=== PATIENT | male | born 1960 | race Caucasian/White ===

== ENCOUNTER → 2017-03-30 | Outpatient (CLI) | payer OTHER ==
[~2017-03-30] MED LIST: ASPI325T4 PO; ATOR-26 PO; CIPR-255 PO; METO25TA3 PO; METR-163 PO; NTRGSL/4 UT; OXYC1TAB3 PO
[2017-03-30 18:47] LABS: CHOLESTEROL/HDL RATIO 4.1
== END | disposition home or self-care (01) ==
LOC: C.LAB 17:11
PROVIDERS: ATTEND Internal Medicine Cardiovascular Disease
DX: I25.10 Atherosclerotic heart disease of native coronary artery without angina pectoris (principal); E78.00 Pure hypercholesterolemia, unspecified

== ENCOUNTER 2017-04-18 14:33 | Emergency (ER) | payer OTHER ==
[~2017-04-18] VITALS: Ht 165.1 cm; Wt 100.0 kg
[~2017-04-18 14:33] MED LIST changes: -ASPI325T4 PO; -CIPR-255 PO; -METR-163 PO; -OXYC1TAB3 PO
[2017-04-18 14:35] VITALS: TEMP 36.8; Ht 165.1 cm; Wt 100.0 kg
[2017-04-18] MEDS ORDERED: KETOROLAC TROMETHAMINE 30 MG/ML VIAL IV STA (15:00)
[2017-04-18] MEDS ORDERED: SODIUM CHLORIDE 0.9% 1000ML 2,000 ML IV STA (15:00)
[2017-04-18] MEDS ORDERED: ONDANSETRON INJ 2 MG/ML 2 ML VIAL IV STA (15:00)
[2017-04-18 15:18] LABS: BASO % 0.3 %; BASO ABS # 0.04 K/uL (0-0.2); COMPLETE YES; EOS % 0.3 %; HEMATOCRIT 44.7 % (42-52); IG% 0.4 %; LYMPH % 7.3 %; LYMPH ABS # 1.13 K/uL (1.2-3.4); MEAN CELL VOLUME 89.6 fL (80-100); MEAN CORPUSCULAR HEMOGLOBIN 30.3 pg (25-34); MEAN CORPUSCULAR HGB CONC 33.8 g/dl (32-36); MEAN PLATELET VOLUME 9.6 fL (7.4-10.4); NEUT % 84.7 %; PLATELET COUNT 226 K/uL (130-400); RED BLOOD COUNT 4.99 M/uL (4.7-6.1); WHITE BLOOD COUNT 15.47 K/uL (4.8-10.8)
[2017-04-18 15:20] LABS: URINE APPEARANCE CLEAR (CLEAR); URINE COLOR DK YELLOW; URINE EPITHELIAL CELL AUTO 20-30 /lpf (0-5); URINE NITRITE NEG (NEG); URINE PH 5.5 (4.5-7.5); URINE SPECIFIC GRAVITY 1.028 (1.000-1.030); UROBILINOGEN NEG (NEG); ZZUR CULT IF INDIC CLEAN CATCH NO
[2017-04-18 15:21] LABS: MANUAL MICROSCOPIC REQUIRED? NO; REVIEW REQ? NO; URINE BILIRUBIN NEG (NEG)
[2017-04-18 15:36] LABS: CALCIUM 8.8 mg/dl (8.5-10.1); CREATININE 1.2 mg/dl (0.60-1.40); POTASSIUM 3.4 mmol/L (3.5-5.1)
[2017-04-18] MEDS ORDERED: ASPI325T4 PO (15:52)
[2017-04-18] MEDS ORDERED: OPTIRAY 320 IV PRN (16:45)
--- NOTE | 2017-04-18 16:53 | DIAGNOSTIC IMAGING REPORT ---
ADDENDUM The conclusion should indicate that there is no evidence for focal perforation or extracolonic air. Electronically signed by: Jorge Curiel M.D. 04/18/2017 5:17 PM Dictated Date/Time: 04/18/2017 5:16 PM ORIGINAL REPORT ABDOMEN AND PELVIS CT WITH IV CONTRAST CT DOSE: 1177.86 mGy.cm HISTORY: Pelvic pain. lower umbilical abd pain TECHNIQUE: Multiaxial CT images of the abdomen and pelvis were performed following the use of intravenous contrast. COMPARISON STUDY: 04/08/2014 FINDINGS: Linear scarlike density right lung base. Minimal dependent basilar atelectasis. Fatty infiltration of liver. Elbow is negative for distention. Spleen is uniform. The adrenal glands are unremarkable. Extrarenal pelves involving the kidneys bilaterally. No evidence for hydronephrosis. Considerable wall edematous change of the proximal to mid sigmoid colon. Transaxial image 76 suggests a focal air bubble extrinsic to the lumen this most likely relates to a diverticulum. Pericolonic infiltrative changes significant. There is slight infiltrative change extending to the left lateral pelvic sidewall.. Suggest acute diverticulitis. Bladder is midline. There is slight bladder wall thickening. There is small amount of fluid within the lower right paracolic gutter most likely reactive. IMPRESSION: 1. Acute proximal to mid sigmoid diverticulitis. 2. Considerable air pericolonic wall infiltrative change. 3. No evidence for abscess collection or obstruction. Electronically signed by: Jorge Curiel M.D. 04/18/2017 4:52 PM Dictated Date/Time: 04/18/2017 4:49 PM
[2017-04-18] MEDS ORDERED: METRONIDAZOLE 500MG / 100ML NSS IV STA (17:09)
[2017-04-18] MEDS ORDERED: CIPROFLOXACIN 500 MG TAB PO STA (17:11)
[2017-04-18] MEDS ORDERED: OXYC1TAB3 PO (17:33)
[2017-04-18] MEDS ORDERED: METR-163 PO (17:33)
[2017-04-18] MEDS ORDERED: CIPR-255 PO (17:33)
[2017-04-18 18:34] VITALS: BP 149/77; PULSE 84; O2SAT 96
--- NOTE | 2017-04-18 21:42 | EMERGENCY ROOM VISIT NOTE ---
History Report prepared by Manule: Andi Villasenor Under the Supervision of: Dr. Evan Gaston D.O. First contact with patient: 14:42 Chief Complaint: ABDOMINAL PAIN Stated Complaint: ABDOMINAL PAIN Nursing Triage Summary: Pt low mid abdominal pain x 3 days. Pt denies n/v/d Pt states he has been voiding more often because it helps decrese the pain. No BM x 3 days. Pt states he has not taken anything for constipation because "I'm afraid to. 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 His pain is improved while laying down and urinating. He notes that he has a history of a heart attack. The patient states that he has not been eating or drinking much recently. His last normal bowel movement was two days ago. He has no history of similar symptoms. The patient has no history of abdominal surgery. Pt denies headache, change in vision, fevers, chest pain, shortness of breath, testicular pain, nausea, vomiting, diarrhea.. 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 Source of History: patient Onset: three days ago Position: abdomen (lower) Timing: worsening Modifying Factors (Relieving): urination, other (laying down) Associated Symptoms: No SOB, No chest pain, No chills, No diarrhea, No fevers, No nausea, No urinary symptoms, No vomiting Note: The patient denies any testicular pain. Review of Systems See HPI for pertinent positives & negatives. A total of 10 systems reviewed and were otherwise negative. Past Medical & Surgical Medical Problems: (1) Coronary artery disease (2) Kidney stones Family History No pertinent family history stated. Social History Smoking Status: Former Smoker Alcohol Use: none Marital Status: Occupation Status: employed Current/Historical Medications Scheduled Aspirin (Aspirin), 325 MG PO DAILY Atorvastatin (Lipitor), 80 MG PO HS Ciprofloxacin Hcl (Cipro), 500 MG PO BID Metoprolol Succ (Toprol Xl) (Toprol-Xl), 25 MG PO BID Metronidazole (Flagyl), 500 MG PO TID Nitroglycerin (Nitrostat), 0.4 MG UT PRN Scheduled PRN Oxycodone Ir (Roxicodone Ir), 1-2 TAB PO Q4H PRN for Pain Allergies Coded Allergies: No Known Allergies (Unverified , 05/25/14) Physical Exam Vital Signs Date Time Temp Pulse Resp B/P Pulse Ox O2 Delivery O2 Flow Rate FiO2 04/18/17 18:34 84 18 149/77 96 Room Air 04/18/17 16:34 97 16 141/76 97 Room Air 04/18/17 14:35 36.8 120 16 163/92 96 Room Air Physical Exam GENERAL: Laying in bed, alert, well appearing, well nourished, no distress, non- toxic EYE EXAM: normal conjunctiva OROPHARYNX: no exudate, no erythema, lips, buccal mucosa, and tongue normal and mucous membranes are moist NECK: supple, no nuchal rigidity, no adenopathy, non-tender LUNGS: Clear to auscultation. Normal chest wall mechanics HEART: Tachycardic. No murmurs, S1 normal and S2 normal ABDOMEN: abdomen soft, normo-active bowel sounds, no masses, no rebound or guarding. Tenderness to palpation in the infraumbilical region. BACK: Back is symmetrical on inspection and there is no deformity, no midline tenderness, no CVA tenderness. SKIN: no rashes and no bruising UPPER EXTREMITIES: upper extremities are grossly normal. LOWER EXTREMITIES: No pitting edema. NEURO EXAM: Normal sensorium, cranial nerves II-XII grossly intact, normal speech, no gross weakness of arms, no gross weakness of legs. Medical Decision & Procedures ER Provider Diagnostic Interpretation: Radiology results as stated below per my review and the radiologist's interpretation: ABDOMEN AND PELVIS CT WITH IV CONTRAST FINDINGS: Linear scarlike density right lung base. Minimal dependent basilar atelectasis. Fatty infiltration of liver. Elbow is negative for distention. Spleen is uniform. The adrenal glands are unremarkable. Extrarenal pelves involving the kidneys bilaterally. No evidence for hydronephrosis. Considerable wall edematous change of the proximal to mid sigmoid colon. Transaxial image 76 suggests a focal air bubble extrinsic to the lumen this most likely relates to a diverticulum. Pericolonic infiltrative changes significant. There is slight infiltrative change extending to the left lateral pelvic sidewall.. Suggest acute diverticulitis. Bladder is midline. There is slight bladder wall thickening. There is small amount of fluid within the lower right paracolic gutter most likely reactive. IMPRESSION: 1. Acute proximal to mid sigmoid diverticulitis. 2. Considerable air pericolonic wall infiltrative change. 3. No evidence for abscess collection or obstruction. Electronically signed by: Jorge Curiel M.D. Laboratory Results 04/18/17 15:00 Red Blood Count 4.99, Mean Corpuscular Volume 89.6, Mean Corpuscular Hemoglobin 30.3, Mean Corpuscular Hemoglobin Concent 33.8, Mean Platelet Volume 9.6, Neutrophils (%) (Auto) 84.7, Lymphocytes (%) (Auto) 7.3, Monocytes (%) (Auto) 7.0, Eosinophils (%) (Auto) 0.3, Basophils (%) (Auto) 0.3, Neutrophils # (Auto) 13.10, Lymphocytes # (Auto) 1.13, Monocytes # (Auto) 1.09, Eosinophils # (Auto) 0.05, Basophils # (Auto) 0.04 04/18/17 15:00 Test 04/18/17 15:00 04/18/17 15:19 White Blood Count 15.47 K/uL (4.8-10.8) Red Blood Count 4.99 M/uL (4.7-6.1) Hemoglobin 15.1 g/dL (14.0-18.0) Hematocrit 44.7 % (42-52) Mean Corpuscular Volume 89.6 fL (80-100) Mean Corpuscular Hemoglobin 30.3 pg (25-34) Mean Corpuscular Hemoglobin Concent 33.8 g/dl (32-36) Platelet Count 226 K/uL (130-400) Mean Platelet Volume 9.6 fL (7.4-10.4) Neutrophils (%) (Auto) 84.7 % Lymphocytes (%) (Auto) 7.3 % Monocytes (%) (Auto) 7.0 % Eosinophils (%) (Auto) 0.3 % Basophils (%) (Auto) 0.3 % Neutrophils # (Auto) 13.10 K/uL (1.4-6.5) Lymphocytes # (Auto) 1.13 K/uL (1.2-3.4) Monocytes # (Auto) 1.09 K/uL (0.11-0.59) Eosinophils # (Auto) 0.05 K/uL (0-0.5) Basophils # (Auto) 0.04 K/uL (0-0.2) RDW Standard Deviation 43.9 fL (36.4-46.3) RDW Coefficient of Variation 13.4 % (11.5-14.5) Immature Granulocyte % (Auto) 0.4 % Immature Granulocyte # (Auto) 0.06 K/uL (0.00-0.02) Urine Color DK YELLOW Urine Appearance CLEAR (CLEAR) Urine pH 5.5 (4.5-7.5) Urine Specific [place] 1.028 (1.000-1.030) Urine Protein 1+ (NEG) Urine Glucose (UA) NEG (NEG) Urine Ketones 4+ (NEG) Urine Occult Blood 1+ (NEG) Urine Nitrite NEG (NEG) Urine Bilirubin NEG (NEG) Urine Urobilinogen NEG (NEG) Urine Leukocyte Esterase NEG (NEG) Urine WBC (Auto) 1-5 /hpf (0-5) Urine RBC (Auto) 0-4 /hpf (0-4) Urine Hyaline Casts (Auto) 5-10 /lpf (0-5) Urine Epithelial Cells (Auto) 20-30 /lpf (0-5) Urine Bacteria (Auto) NEG (NEG) Anion Gap 8.0 mmol/L (3-11) Est Creatinine Clear Calc Drug Dose 73.0 ml/min Estimated GFR () 76.8 Estimated GFR (Non- 66.3 BUN/Creatinine Ratio 9.0 (10-20) Calcium Level 8.8 mg/dl (8.5-10.1) Total Bilirubin 1.6 mg/dl (0.2-1) Direct Bilirubin 0.3 mg/dl (0-0.2) Aspartate Amino Transf (AST/SGOT) 16 U/L (15-37) Alanine Aminotransferase (ALT/SGPT) 30 U/L (12-78) Alkaline Phosphatase 111 U/L (45-117) Total Protein 7.7 gm/dl (6.4-8.2) Albumin 3.9 gm/dl (3.4-5.0) Lipase 138 U/L (73-393) Bedside Lactic Acid Venous 1.52 mmol/L (0.90-1.70) Laboratory results per my review. Medications Administered Medications (Trade) Dose Ordered Sig/René Route Start Time Stop Time Status Last Admin Dose Admin Ketorolac Tromethamine 30 mg 30 mg NOW STAT IV 5/20/17 15:00 04/18/17 15:03 DC 04/18/17 15:15 30 MG Sodium Chloride (Nss 1000ml) 2,000 ml @ 999 mls/hr Q2H1M STAT IV 04/18/17 15:00 04/18/17 17:00 DC 04/18/17 15:00 999 MLS/HR Ondansetron HCl (Zofran Inj) 4 mg NOW STAT IV 04/18/17 15:00 04/18/17 15:03 DC 04/18/17 15:14 4 MG Metronidazole (Flagyl / Nss) 500 mg NOW STAT IV 04/18/17 17:09 04/18/17 17:10 DC 04/18/17 17:21 500 MG Ciprofloxacin (Cipro Tab) 500 mg NOW STAT PO 04/18/17 17:11 04/18/17 17:12 DC 04/18/17 17:20 500 MG ED Course ED COURSE: Vital signs were reviewed and showed tachycardia The patients medical record was reviewed The above diagnostic studies were performed and reviewed. ED treatments and interventions as stated above. 1445: The patient was evaluated in room A2. A complete history and physical examination was performed. 1449: Bedside ultrasound showed an empty bladder. 1500: Ordered Zofran Inj 4 mg IV, Sodium Chloride 2000 ml @ 999 mls/hr IV, Toradol Inj 30 mg IV. 1520: I reassessed the patient. He is feeling better. I updated him on his laboratory studies. 1709: Ordered Flagyl / NSS 500 mg IV. 1711: Ordered Cipro Tab 500 mg PO. 1730: Upon reevaluation, the patient is resting comfortably. I discussed my findings with the patient and he understands and agrees with the treatment plan. Based on the patients age, coexisting illnesses, exam and lab findings the decision to treat as an outpatient was made. The patient remained stable while under my care. The patient appeared well at the time of discharge. Medical Decision Differential diagnoses includes but is not limited to gastritis, peptic ulcer disease, GERD, gallbladder disease, pancreatitis, small bowel obstruction, acute coronary syndrome, pericarditis, ischemic bowel, irritable bowel disease, irritable bowel syndrome, appendicitis, diverticulitis, malignancy, hernia, urinary tract infection, torsion, /ectopic , perforation, trauma, infectious. Patient is a 57-year-old male who presents the ER for a super umbilical abdominal pain which is present and worse with movement or bumps. Improves with urination. Has been present for the past 3 days. No fevers. He is eating and drinking. Labs show a leukocytosis of 15,000. CT of his abdomen and pelvis shows acute sigmoid diverticulitis without perforation or abscess. I updated him in regards these findings. He declined pain medications other than Toradol. Patient was given a bolus normal saline, Flagyl, cipro, and Toradol. Following this he was discharged with Cipro and Flagyl and instructed to follow-up with his primary care doctor to have an abdominal recheck within 48 hours. Discussed with Pt concerning signs and symptoms to watch out for. Pt was instructed to follow up with their PCP and discussed with the patient their option to return to the ED at anytime for persistent or worsening symptoms. The appropriate anticipatory guidance and out-patient management, including indications for return to the emergency department, were explained at length to the patient and understood. Consults Time Called: 1704 Consulting Physician: Dr. Curiel -Radiology Returned Call: 1705 Discussed the patient's case with Dr. Curiel. He does not feel that the patient has a perforation or abscess. Impression Primary Impression: Diverticulitis Scribe Attestation The scribe's documentation has been prepared under my direction and personally reviewed by me in its entirety. I confirm that the note above accurately reflects all work, treatment, procedures, and medical decision making performed by me. Departure Information Dispostion Home / Self-Care Prescriptions Oxycodone Ir (Roxicodone Ir) 5 Mg Tab 1-2 TAB PO Q4H Y for Pain, #15 TAB Prov: Evan Gaston, DO 04/18/17 Metronidazole (Flagyl) 500 Mg Tab 500 MG PO TID for 10 Days, #30 TAB Prov: Evan Gaston, DO 04/18/17 Ciprofloxacin Hcl (CIPRO) 500 Mg Tab 500 MG PO BID, #20 TAB Prov: Evan Gaston, DO 04/18/17 Referrals Everette Mayes M.D. (PCP) Forms Call Back Authorization, HOME CARE DOCUMENTATION FORM, IMPORTANT VISIT INFORMATION Patient Instructions ED Diverticulitis, My [facility] Additional Instructions Please follow up with your primary care doctor with in the next 24 hours. Any worsening of your symptoms, please return to the ED immediately. This includes fevers greater than 100.4, worsening abdominal pain, unable to eat or drink, persistent vomiting, or any other concerning signs or symptoms from your standpoint. Please follow up with your primary care doctor on Thursday for abdominal recheck You were given medications during this visit that will inhibit your ability to drive, operate machinery and work. Please do NOT drive, operate machinery or work for the next 12hrs. You were also given a prescription for a narcotic/oxy IR. While taking this medication you should also not drive, operate machinery and or work. Problem Qualifiers Primary Impression: Diverticulitis Diverticulitis site: large intestine Diverticulitis bleeding: without bleeding Diverticulitis complication: without perforation or abscess Qualified Codes: K57.32 - Diverticulitis of large intestine without perforation or abscess without bleeding
== END 2017-04-18 18:41 | disposition home or self-care (01) ==
LOC: C.EDB 14:34 → C.EDA 18:41
DX: K57.92 Diverticulitis of intestine, part unspecified, without perforation or abscess without bleeding (principal); D72.829 Elevated white blood cell count, unspecified; I25.10 Atherosclerotic heart disease of native coronary artery without angina pectoris; Z87.442 Personal history of urinary calculi; Z87.891 Personal history of nicotine dependence; Z79.82 Long term (current) use of aspirin; Z79.899 Other long term (current) drug therapy

== ENCOUNTER → 2017-10-16 | Outpatient (CLI) | payer OTHER ==
[~2017-10-16] MED LIST changes: +ASPI325T4 PO; +CIPR-255 PO; +OXYC1TAB3 PO
== END | disposition home or self-care (01) ==
LOC: C.LAB1850 10:36
PROVIDERS: ATTEND Internal Medicine Cardiovascular Disease
DX: I25.10 Atherosclerotic heart disease of native coronary artery without angina pectoris (principal); E78.00 Pure hypercholesterolemia, unspecified

== ENCOUNTER → 2017-11-13 | Outpatient (CLI) | payer OTHER ==
[~2017-11-13] MED LIST changes: -OXYC1TAB3 PO
== END | disposition home or self-care (01) ==
LOC: C.LAB1850 10:56
PROVIDERS: ATTEND Internal Medicine Cardiovascular Disease
DX: E78.00 Pure hypercholesterolemia, unspecified (principal)

== ENCOUNTER → 2017-11-17 | Outpatient (CLI) | payer OTHER ==
[2017-11-17 12:32] LABS: BASO % 0.8 %; BASO ABS # 0.05 K/uL (0-0.2); COMPLETE YES; EOS % 4.5 %; HEMATOCRIT 40.7 % (42-52); IG% 1.8 %; LYMPH % 23.9 %; LYMPH ABS # 1.59 K/uL (1.2-3.4); MEAN CELL VOLUME 92.3 fL (80-100); MEAN CORPUSCULAR HEMOGLOBIN 31.5 pg (25-34); MEAN CORPUSCULAR HGB CONC 34.2 g/dl (32-36); MEAN PLATELET VOLUME 10.1 fL (7.4-10.4); MONO % 8.3 %; NEUT % 60.7 %; PLATELET COUNT 266 K/uL (130-400); RED BLOOD COUNT 4.41 M/uL (4.7-6.1); WHITE BLOOD COUNT 6.65 K/uL (4.8-10.8)
[2017-11-17 12:58] LABS: FERRITIN 531.4 ng/ml (8.0-388.0)
[2017-11-17 17:38] LABS: HEPATITIS B AB NEG
== END | disposition home or self-care (01) ==
LOC: C.LABBFT 11:01
PROVIDERS: ATTEND Registered Nurse
DX: K76.0 Fatty (change of) liver, not elsewhere classified (principal); R74.8 Abnormal levels of other serum enzymes

== ENCOUNTER → 2017-11-25 | Outpatient (CLI) | payer OTHER ==
[~2017-11-25] MED LIST changes: +AZIT-57 PO; +B-COTAB69; +LORA-749 PO
--- NOTE | 2017-11-25 08:53 | DIAGNOSTIC IMAGING REPORT ---
(LIVER) ABDOMEN LIMITED CLINICAL HISTORY: 57 years-old Male presenting with R74.8 Abnormal liver [id number] Fatty [id number]. TECHNIQUE: Real-time grayscale and limited color Doppler ultrasound imaging of the abdomen limited to the right upper quadrant was performed. COMPARISON: CT from 04/18/2017. FINDINGS: Pancreas: Visualized portions of the pancreatic head and body normal. Liver: Markedly hyperechogenic parenchyma with obscuration of the right hemidiaphragm, likely indicating marked hepatic steatosis. The liver measures 18.5 cm in maximal sagittal dimension. No sonographic evidence of hepatic mass. Main portal vein patent with normal directional flow. Biliary: No intrahepatic biliary ductal dilatation. Common bile duct measures up to 4 mm in diameter. Gallbladder: No evidence of gallstones, gallbladder wall thickening, gallbladder distention, or pericholecystic fluid or inflammatory change. Right kidney: Normal in appearance. No hydronephrosis. Ascites: None. IMPRESSION: Hepatic steatosis. Correlate with liver function tests to exclude steatohepatitis. Electronically signed by: Jason Hollis M.D. 11/25/2017 8:52 AM Dictated Date/Time: 11/25/2017 8:50 AM
== END | disposition home or self-care (01) ==
LOC: C.ULTR 08:07
PROVIDERS: ATTEND Registered Nurse
DX: K76.0 Fatty (change of) liver, not elsewhere classified (principal); R74.8 Abnormal levels of other serum enzymes

== ENCOUNTER → 2017-12-09 | Outpatient (CLI) | payer OTHER ==
[~2017-12-09] MED LIST changes: -AZIT-57 PO; -B-COTAB69; -LORA-749 PO
== END | disposition home or self-care (01) ==
LOC: C.LAB1850 09:37
PROVIDERS: ATTEND Registered Nurse
DX: R76.8 Other specified abnormal immunological findings in serum (principal)

== ENCOUNTER 2018-02-07 09:12 | Inpatient (IN) | payer OTHER ==
[~2018-02-07] VITALS: Ht 167.6 cm; Wt 115.8 kg
[2018-02-07] MEDS ORDERED: B-COTAB69 (09:46)
[2018-02-07 09:58] LABS: BASO % 1.1 %; BASO ABS # 0.09 K/uL (0-0.2); EOS % 6.9 %; EOS ABS # 0.55 K/uL (0-0.5); HEMATOCRIT 41.8 % (42-52); HEMOGLOBIN 14.9 g/dL (14.0-18.0); IG# 0.15 K/uL (0.00-0.02); LYMPH % 20.9 %; LYMPH ABS # 1.67 K/uL (1.2-3.4); MEAN CELL VOLUME 88.7 fL (80-100); MEAN CORPUSCULAR HEMOGLOBIN 31.6 pg (25-34); MEAN CORPUSCULAR HGB CONC 35.6 g/dl (32-36); MEAN PLATELET VOLUME 9.8 fL (7.4-10.4); MONO % 6.1 %; MONO ABS # 0.49 K/uL (0.11-0.59); NEUT % 63.1 %; NEUT ABS # 5.03 K/uL (1.4-6.5); PLATELET COUNT 246 K/uL (130-400); RED CELL DISTRIBUTION WIDTH SD 45.8 fL (36.4-46.3); WHITE BLOOD COUNT 7.98 K/uL (4.8-10.8)
[2018-02-07 10:13] LABS: INFLUENZA B ANTIGEN Neg for Influ B (NEG)
--- NOTE | 2018-02-07 10:13 | DIAGNOSTIC IMAGING REPORT ---
CHEST 2 VIEWS ROUTINE CLINICAL HISTORY: cough COMPARISON STUDY: 04/14/2014 FINDINGS: The heart is borderline enlarged. There is no failure. There is no focal pulmonary consolidation. There are no pleural effusions. There is minor interstitial thickening.[ IMPRESSION: Borderline cardiomegaly and mild interstitial thickening. No evidence of focal pulmonary consolidation Electronically signed by: Rey Vaughan M.D. 02/07/2018 10:11 AM Dictated Date/Time: 02/07/2018 10:11 AM
[2018-02-07 10:16] LABS: ALBUMIN 3.9 gm/dl (3.4-5.0); ALT/SGPT 234 U/L (12-78); AST/SGOT 143 U/L (15-37); BLOOD UREA NITROGEN 15 mg/dl (7-18); CALCIUM 8.7 mg/dl (8.5-10.1); CARBON DIOXIDE 25 mmol/L (21-32); CREATININE 1.09 mg/dl (0.60-1.40); GLUCOSE 139 mg/dl (70-99); LIPASE 202 U/L (73-393); POTASSIUM 3.7 mmol/L (3.5-5.1); SODIUM 136 mmol/L (136-145)
[2018-02-07 10:31] LABS: ALKALINE PHOSPHATASE 105 U/L (45-117); CKMB 3.1 ng/ml (0.5-3.6); TOTAL PROTEIN 7.8 gm/dl (6.4-8.2)
--- NOTE | 2018-02-07 11:27 | DIAGNOSTIC IMAGING REPORT ---
BILIARY ULTRASOUND CLINICAL HISTORY: elevated LFT's COMPARISON STUDY: November 25, 2017 FINDINGS: The pancreas was nonvisualized. The liver was of increased echogenicity, nonspecific finding most often seen in hepatic steatosis. The gallbladder appears sonographically normal. There was no ductal dilatation. The common bile duct measured 6 mm. There is no right-sided hydronephrosis. IMPRESSION: Hepatic steatosis. Ultrasonographically normal gallbladder. No evidence of ductal dilatation. Electronically signed by: Rey Vaughan M.D. 02/07/2018 11:26 AM Dictated Date/Time: 02/07/2018 11:24 AM
[2018-02-07] MEDS ORDERED: SODIUM CHLORIDE 0.9% 1000ML 1,000 ML IV STA (13:02)
--- NOTE | 2018-02-07 14:52 | EMERGENCY ROOM VISIT NOTE ---
History First contact with patient: 09:27 Chief Complaint: SHORTNESS OF BREATH Stated Complaint: SOB Nursing Triage Summary: Congestio, shortness of breath, and cough x1 week. Denies fevers. Cough keeping him up at night. Episode of chest pain yesterday with exertion lasting 5 minutes. Hx KS. History of Present Illness The patient is a 57 year old male who presents to the Emergency Room with complaints of head and chest congestion for 1 week. Patient states he has felt warm but has not taken his temperature. The patient also admits to some body aches and feeling short of breath. The patient states he is always short of breath but feels more short of breath since the onset of his URI symptoms. The patient denies any ear pain but admits to his ears "popping". The patient denies any sore throat. The patient also states that yesterday at approximately noon he had some chest pain on exertion which lasted about 5 minutes. The patient denies any associated dizziness, diaphoresis, jaw or arm pain. The patient does admit to history of KS in the past. The patient takes a baby aspirin daily. The patient has not taken any Tylenol or ibuprofen today. He has been taking Mucinex for his cough. He states his cough has been dry but it feels like he should be able to cough something up but has not been able to produce any mucus. The patient currently denies any chest pain. He denies any chest pain since his onset of the pain yesterday. The patient does admit that he was on cholesterol medicine but was taken off the cholesterol medicine and fall when his liver functions were elevated. Review of Systems 10 system review was performed and was negative unless stated otherwise history of present illness. Past Medical/Surgical History Medical Problems: (1) Coronary artery disease (2) Kidney stones Social History Smoking Status: Never Smoker Alcohol Use: none Marital Status: Occupation Status: employed Current/Historical Medications Scheduled Aspirin (Aspirin), 325 MG PO DAILY Atorvastatin (Lipitor), 80 MG PO HS Metoprolol Succ (Toprol Xl) (Toprol-Xl), 25 MG PO BID Nitroglycerin (Nitrostat), 0.4 MG UT PRN Miscellaneous Medications B-Complex W/Biotin & Folic Aci (B Complete) Physical Exam Vital Signs Date Time Temp Pulse Resp B/P (MAP) Pulse Ox O2 Delivery O2 Flow Rate FiO2 02/07/18 13:13 55 16 178/88 97 Room Air 02/07/18 13:11 61 02/07/18 12:06 56 18 207/119 96 Room Air 02/07/18 12:00 60 16 241/116 98 Room Air 02/07/18 10:31 52 16 153/88 96 Room Air 02/07/18 09:50 96 18 182/86 96 Room Air 02/07/18 09:47 98 Room Air 02/07/18 09:30 57 18 198/105 98 Room Air 02/07/18 09:28 55 02/07/18 09:17 36.4 61 20 168/93 96 Room Air 02/07/18 09:17 96 Room Air Physical Exam GENERAL: 57-year-old obese male appears in no acute distress. MENTAL Status: Alert and oriented 3. EYES: PERRLA. EOMs intact. EARS: Canals clear. TMs without fluid level noted. NOSE: Nasal mucosa with erythema and engorgement. PHARYNX: No erythema or edema noted. No exudate noted. Airway is adequate. NECK: Supple, no lymphadenopathy noted. No carotid bruits noted. LUNGS: Clear auscultation without wheezes rales or rhonchi. CARDIAC: Regular rate and rhythm without murmur. Pulses is full and equal throughout. ABDOMEN: Positive bowel sounds all 4 quadrants. Soft, nontender to palpation without organomegaly or masses. LOWER EXTREMITIES: No cyanosis or edema noted. Medical Decision & Procedures ER Provider Diagnostic Interpretation: BILIARY ULTRASOUND CLINICAL HISTORY: elevated LFT's COMPARISON STUDY: November 25, 2017 FINDINGS: The pancreas was nonvisualized. The liver was of increased echogenicity, nonspecific finding most often seen in hepatic steatosis. The gallbladder appears sonographically normal. There was no ductal dilatation. The common bile duct measured 6 mm. There is no right-sided hydronephrosis. IMPRESSION: Hepatic steatosis. Ultrasonographically normal gallbladder. No evidence of ductal dilatation. Electronically signed by: Rey Vaughan M.D. 02/07/2018 11:26 AM CHEST 2 VIEWS ROUTINE CLINICAL HISTORY: cough COMPARISON STUDY: 04/14/2014 FINDINGS: The heart is borderline enlarged. There is no failure. There is no focal pulmonary consolidation. There are no pleural effusions. There is minor interstitial thickening.[ IMPRESSION: Borderline cardiomegaly and mild interstitial thickening. No evidence of focal pulmonary consolidation Electronically signed by: Rey Vaughan M.D. 02/07/2018 10:11 AM Dictated Date/Time: 02/07/2018 10:11 AM Laboratory Results 02/07/18 09:50 Red Blood Count 4.71, Mean Corpuscular Volume 88.7, Mean Corpuscular Hemoglobin 31.6, Mean Corpuscular Hemoglobin Concent 35.6, Mean Platelet Volume 9.8, Neutrophils (%) (Auto) 63.1, Lymphocytes (%) (Auto) 20.9, Monocytes (%) (Auto) 6.1, Eosinophils (%) (Auto) 6.9, Basophils (%) (Auto) 1.1, Neutrophils # (Auto) 5.03, Lymphocytes # (Auto) 1.67, Monocytes # (Auto) 0.49, Eosinophils # (Auto) 0.55, Basophils # (Auto) 0.09 02/07/18 09:50 Test 02/07/18 09:50 02/07/18 13:29 White Blood Count 7.98 K/uL (4.8-10.8) Red Blood Count 4.71 M/uL (4.7-6.1) Hemoglobin 14.9 g/dL (14.0-18.0) Hematocrit 41.8 % (42-52) Mean Corpuscular Volume 88.7 fL (80-100) Mean Corpuscular Hemoglobin 31.6 pg (25-34) Mean Corpuscular Hemoglobin Concent 35.6 g/dl (32-36) Platelet Count 246 K/uL (130-400) Mean Platelet Volume 9.8 fL (7.4-10.4) Neutrophils (%) (Auto) 63.1 % Lymphocytes (%) (Auto) 20.9 % Monocytes (%) (Auto) 6.1 % Eosinophils (%) (Auto) 6.9 % Basophils (%) (Auto) 1.1 % Neutrophils # (Auto) 5.03 K/uL (1.4-6.5) Lymphocytes # (Auto) 1.67 K/uL (1.2-3.4) Monocytes # (Auto) 0.49 K/uL (0.11-0.59) Eosinophils # (Auto) 0.55 K/uL (0-0.5) Basophils # (Auto) 0.09 K/uL (0-0.2) RDW Standard Deviation 45.8 fL (36.4-46.3) RDW Coefficient of Variation 14.0 % (11.5-14.5) Immature Granulocyte % (Auto) 1.9 % Immature Granulocyte # (Auto) 0.15 K/uL (0.00-0.02) Anion Gap 7.0 mmol/L (3-11) Est Creatinine Clear Calc Drug Dose 87.8 ml/min Estimated GFR () 85.7 Estimated GFR (Non- 73.9 BUN/Creatinine Ratio 13.5 (10-20) Calcium Level 8.7 mg/dl (8.5-10.1) Total Bilirubin 0.7 mg/dl (0.2-1) Direct Bilirubin 0.2 mg/dl (0-0.2) Aspartate Amino Transf (AST/SGOT) 143 U/L (15-37) Alanine Aminotransferase (ALT/SGPT) 234 U/L (12-78) Alkaline Phosphatase 105 U/L (45-117) Total Creatine Kinase 1170 U/L (39-308) Creatine Kinase MB 3.1 ng/ml (0.5-3.6) Creatine Kinase MB Ratio 0.3 (0-3.0) Pro-B-Type Natriuretic Peptide 96 pg/ml (0-900) Total Protein 7.8 gm/dl (6.4-8.2) Albumin 3.9 gm/dl (3.4-5.0) Lipase 202 U/L (73-393) Influenza Type A Antigen Neg for Influ A (NEG) Influenza Type B Antigen Neg for Influ B (NEG) Troponin I 0.019 ng/ml (0-0.045) Medications Administered Medications (Trade) Dose Ordered Sig/René Route Start Time Stop Time Status Last Admin Dose Admin Sodium Chloride 1,000 ml @ 999 mls/hr Q1H1M STAT IV 02/07/18 13:02 02/07/18 14:02 DC 02/07/18 13:02 999 MLS/HR ECG Per My Interpretation Indication: SOB/dyspnea Rhythm: sinus bradycardia Findings: no acute ischemic change ED Course The patient was evaluated. The patient was placed on a monitor and continuous pulse ox. IV access was obtained. CBC differential, renal profile, LFTs and lipase levels were ordered. CK-MB, troponin and BNP was ordered. Chest x-ray was ordered interpreted by the radiologist as above with a slightly enlarged heart otherwise no acute findings noted.. Rapid influenza was negative for influenza A and influenza B.. EKG was ordered interpreted as above without any acute findings. Labs are reviewed. The patient's white count was normal. Renal profile was unremarkable. The patient's LFTs were elevated as well as his CK. Troponin was normal. The patient's case was discussed with Dr. Parra who agree with treatment plan. The patient was given 1 L normal saline wide open. [facility] hospitalist was consulted for admission. Medical Decision Differential diagnosis initially included pneumonia, KS, URI, influenza. 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 Therefore the patient was admitted for further evaluation. [place] Drug Monitoring Program Search Results: patient reviewed within database Medication Reconcilliation Current Medication List: was personally reviewed by me Blood Pressure Screening Patient's blood pressure: Elevated blood pressure Impression Primary Impression: Rhabdomyolysis Additional Impression: Shortness of breath Departure Information Dispostion Being Evaluated By Hospitalist Condition GOOD Referrals Everette Mayes M.D. (PCP) Patient Instructions My [facility] Problem Qualifiers Primary Impression: Rhabdomyolysis Rhabdomyolysis type: non-traumatic Qualified Codes: M62.82 - Rhabdomyolysis
[2018-02-07] MEDS ORDERED: ALUMINUM/MAGNESIUM/SIMETH (MAALOX MAX) 30 ML UDC PO PRN (15:30)
[2018-02-07] MEDS ORDERED: ONDANSETRON INJ 2 MG/ML 2 ML VIAL IV PRN (15:30)
[2018-02-07] MEDS ORDERED: MAGNESIUM HYDROXIDE SUSP 30 ML UDC PO PRN (15:30)
[2018-02-07] MEDS ORDERED: NITROGLYCERIN 0.4 MG SL PER TAB CHARGE SL PRN (15:30)
[2018-02-07] MEDS ORDERED: MoRPHine SULFATE 2 MG/ML CARP IV PRN (15:30)
[2018-02-07] MEDS ORDERED: ZOLPIDEM TARTRATE 5 MG TAB PO PRN ×2 (15:30)
[2018-02-07] MEDS ORDERED: POLYETHYLENE (MIRALAX) 17 GM PACK PO PRN (15:30)
[2018-02-07] MEDS ORDERED: NITROGLYCERIN 0.4 MG SL PER TAB CHARGE UT SCH (15:30)
[2018-02-07] MEDS ORDERED: AZITHROMYCIN 250 MG TAB PO STA (15:49)
[2018-02-07] MEDS ORDERED: LORATADINE/PSEUDOEPHEDRINE 1 TAB TABCR PO STA (15:55)
--- NOTE | 2018-02-07 16:09 | History and Physical ---
History & Physical Date & Time of Service: Feb 07, 2018 at 15:48 Chief Complaint: SOB Primary Care Physician: No Doctor, Assigned History of Present Illness Source: patient 57-year-old man with past medical history of hypertension and dyslipidemia. Patient had elevated liver enzymes in the past and stopped his Lipitor about 3 months ago. 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 After a few hours of working patient developed substernal chest pain that lasted few minutes but was accompanied with significant shortness of breath that lasted for about half hour. Pain was localized appears to be compression or squeezing character, moderate to severe in nature associated with exertion and was relieved by rest. Patient also reported having upper respiratory tract infection for the last 2 months with intermittent cough. He states that for about a month every time he falls asleep he wakes up coughing and choking. Feels congestion in his ears and nasal sinuses. Currently on beta-matthew SANJEEV inhibitor and aspirin he stopped his Lipitor due to elevated liver enzymes. In the ED was noticed to have elevated liver enzymes more than his baseline, also he was noticed to have elevated CK total indicating mild rhabdomyolysis. Patient currently is chest pain-free, denies any fever chills denies any diarrhea or blood Social History Smoking Status: Never Smoker Marital Status: Occupational Status: employed Allergies Coded Allergies: No Known Allergies (Unverified , 02/07/18) Home Medications Scheduled Aspirin (Aspirin), 325 MG PO DAILY Atorvastatin (Lipitor), 80 MG PO HS Metoprolol Succ (Toprol Xl) (Toprol-Xl), 25 MG PO BID Nitroglycerin (Nitrostat), 0.4 MG UT PRN Miscellaneous Medications B-Complex W/Biotin & Folic Aci (B Complete) Review of Systems Constitutional: + weakness, + fatigue, No fever, No chills, No sweats, No weight loss, No problem reported Eyes: No worsening of vision, No eye pain, No redness, No discharge, No diplopia, No problem reported ENT: No hearing loss, No unusual epistaxis, No nasal symptoms, No sore throat, No tinnitus, No dental problems, No trouble swallowing, No problem reported Respiratory: + cough, + shortness of breath, + dyspnea on exertion, + dyspnea at rest, No sputum, No wheezing, No hemoptysis, No problem reported Cardiovascular: + chest pain, No orthopnea, No PND, No edema, No claudication, No palpitations, No problem reported Abdomen: No pain, No nausea, No vomiting, No diarrhea, No constipation, No GI bleeding, No problem reported Musculoskeletal: No joint pain, No muscle pain, No swelling, No calf pain, No problem reported Genitourinary - Male: No hematuria, No dysuria, No urinary frequency, No urinary urgency, No urinary hesitancy, No urinary retention, No urinary incontinence, No penile discharge, No lesions, No impotence, No problem reported Neurologic: No memory loss, No paralysis, No weakness, No numbness/tingling, No vertigo, No balance problems, No problem reported Endocrine: + fatigue, No excessive thirst, No excessive urination, No problem reported Hematologic / Lymphatic: No abnormal bleeding/bruising, No clotting problems, No swollen lymph nodes, No night sweats, No problem reported Integumentary: No rash, No itch, No new/changing skin lesions, No color change , No bleeding, No problem reported Allergic / Immunologic: No environmental allergies, No seasonal allergies, No pet sensitivities, No food allergies, No hives, No frequent infections, No poor healing, No prolonged convalescence, No problem reported Physical Exam Vital Signs Date Time Temp Pulse Resp B/P (MAP) Pulse Ox O2 Delivery O2 Flow Rate FiO2 02/07/18 13:13 55 16 178/88 97 Room Air 02/07/18 13:11 61 02/07/18 12:06 56 18 207/119 96 Room Air 02/07/18 12:00 60 16 241/116 98 Room Air 02/07/18 10:31 52 16 153/88 96 Room Air 02/07/18 09:50 96 18 182/86 96 Room Air 02/07/18 09:47 98 Room Air 02/07/18 09:30 57 18 198/105 98 Room Air 02/07/18 09:28 55 02/07/18 09:17 36.4 61 20 168/93 96 Room Air 02/07/18 09:17 96 Room Air General Appearance: no apparent distress, + obese Head: normocephalic, atraumatic Eyes: normal inspection, EOMI ENT: normal ENT inspection, hearing grossly normal Neck: supple Respiratory/Chest: chest non-tender, lungs clear, normal breath sounds, no respiratory distress, no accessory muscle use Cardiovascular: regular rate, rhythm, no edema, no gallop, no JVD, no murmur, normal peripheral pulses Abdomen/GI: normal bowel sounds, non tender, soft, no organomegaly, no pulsatile mass Back: normal inspection Extremities/Musculoskelatal: normal inspection, no calf tenderness, normal capillary refill, no pedal edema, normal range of motion Neurologic/Psych: 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 tested, no motor/sensory deficits, alert, normal mood/affect, normal reflexes, oriented x 3 Skin: normal color, warm/dry, no rash Diagnostics Laboratory Results Results Past 24 Hours Test 02/07/18 09:50 02/07/18 13:29 Range/Units White Blood Count 7.98 4.8-10.8 K/uL Red Blood Count 4.71 4.7-6.1 M/uL Hemoglobin 14.9 14.0-18.0 g/dL Hematocrit 41.8 42-52 % Mean Corpuscular Volume 88.7 80-100 fL Mean Corpuscular Hemoglobin 31.6 25-34 pg Mean Corpuscular Hemoglobin Concent 35.6 32-36 g/dl Platelet Count 246 130-400 K/uL Mean Platelet Volume 9.8 7.4-10.4 fL Neutrophils (%) (Auto) 63.1 % Lymphocytes (%) (Auto) 20.9 % Monocytes (%) (Auto) 6.1 % Eosinophils (%) (Auto) 6.9 % Basophils (%) (Auto) 1.1 % Neutrophils # (Auto) 5.03 1.4-6.5 K/uL Lymphocytes # (Auto) 1.67 1.2-3.4 K/uL Monocytes # (Auto) 0.49 0.11-0.59 K/uL Eosinophils # (Auto) 0.55 0-0.5 K/uL Basophils # (Auto) 0.09 0-0.2 K/uL RDW Standard Deviation 45.8 36.4-46.3 fL RDW Coefficient of Variation 14.0 11.5-14.5 % Immature Granulocyte % (Auto) 1.9 % Immature Granulocyte # (Auto) 0.15 0.00-0.02 K/uL Sodium Level 136 136-145 mmol/L Potassium Level 3.7 3.5-5.1 mmol/L Chloride Level 104 98-107 mmol/L Carbon Dioxide Level 25 21-32 mmol/L Anion Gap 7.0 3-11 mmol/L Blood Urea Nitrogen 15 7-18 mg/dl Creatinine 1.09 0.60-1.40 mg/dl Est Creatinine Clear Calc Drug Dose 87.8 ml/min Estimated GFR () 85.7 Estimated GFR (Non- 73.9 BUN/Creatinine Ratio 13.5 10-20 Random Glucose 139 70-99 mg/dl Calcium Level 8.7 8.5-10.1 mg/dl Total Bilirubin 0.7 0.2-1 mg/dl Direct Bilirubin 0.2 0-0.2 mg/dl Aspartate Amino Transf (AST/SGOT) 143 15-37 U/L Alanine Aminotransferase (ALT/SGPT) 234 12-78 U/L Alkaline Phosphatase 105 45-117 U/L Total Creatine Kinase 1170 39-308 U/L Creatine Kinase MB 3.1 0.5-3.6 ng/ml Creatine Kinase MB Ratio 0.3 0-3.0 Troponin I < 0.015 0.019 0-0.045 ng/ml Pro-B-Type Natriuretic Peptide 96 0-900 pg/ml Total Protein 7.8 6.4-8.2 gm/dl Albumin 3.9 3.4-5.0 gm/dl Lipase 202 73-393 U/L Influenza Type A Antigen Neg for Influ A NEG Influenza Type B Antigen Neg for Influ B NEG Impression Assessment and Plan 57-year-old man past medical history of hypertension and dyslipidemia and elevated liver enzymes, currently off Lipitor for 3 months presented to the emergency room with substernal chest pain associated with shortness of breath. He was found to have elevated liver enzymes mild rhabdomyolysis. Also complained of choking and coughing when he lays flat, generalized fatigue and insomnia. 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 Liver enzymes are just slightly worse than baseline. Heparin for DVT prophylaxis Repeat CK in a.m. after hydration Resuscitation Status VTE Prophylaxis Will order VTE Prophylaxis: Yes
[2018-02-07 17:00] VITALS: BP 175/106; PULSE 60; TEMP 37; O2SAT 97; Ht 167.6 cm; Wt 115.8 kg
[2018-02-07] MEDS: SODIUM CHLORIDE 0.9% 1000ML 1,000 ML IV SCH (18:33)
[2018-02-07] MEDS: SODIUM CHLORIDE 0.65% NA SOLN 45 ML (OCEAN) SCH ×2 (18:44→20:15)
[2018-02-07 19:24] VITALS: BP 172/99; PULSE 73; TEMP 36.6; O2SAT 94
[2018-02-07 20:00] VITALS: O2SAT 94
[2018-02-07] MEDS: METOPROLOL SUCC 25MG EXT REL TAB PO SCH (20:15)
[2018-02-07] MEDS ORDERED: ENOXAPARIN 40 MG/0.4 ML SYR SC SCH (21:00)
[2018-02-07 21:51] VITALS: BP 128/71; PULSE 62
[2018-02-07 23:45] VITALS: BP 124/67; PULSE 60; TEMP 36.6; O2SAT 97
[2018-02-08 03:57] VITALS: BP 129/67; PULSE 61; TEMP 36.7; O2SAT 96
[2018-02-08 04:16] LABS: BASO % 0.9 %; BASO ABS # 0.06 K/uL (0-0.2); EOS % 5.9 %; HEMATOCRIT 38.6 % (42-52); HEMOGLOBIN 13.5 g/dL (14.0-18.0); IG# 0.09 K/uL (0.00-0.02); LYMPH % 27.3 %; LYMPH ABS # 1.84 K/uL (1.2-3.4); MEAN CELL VOLUME 88.1 fL (80-100); MEAN CORPUSCULAR HEMOGLOBIN 30.8 pg (25-34); MEAN PLATELET VOLUME 9.5 fL (7.4-10.4); MONO % 8.2 %; MONO ABS # 0.55 K/uL (0.11-0.59); NEUT % 56.4 %; NEUT ABS # 3.79 K/uL (1.4-6.5); PLATELET COUNT 212 K/uL (130-400); RED CELL DISTRIBUTION WIDTH CV 13.9 % (11.5-14.5); RED CELL DISTRIBUTION WIDTH SD 44.8 fL (36.4-46.3); WHITE BLOOD COUNT 6.73 K/uL (4.8-10.8)
[2018-02-08 04:46] LABS: ALBUMIN 3.5 gm/dl (3.4-5.0); CALCIUM 8.1 mg/dl (8.5-10.1); CREATININE 1.03 mg/dl (0.60-1.40); POTASSIUM 3.3 mmol/L (3.5-5.1)
[2018-02-08 04:49] LABS: PHOSPHORUS 2.9 mg/dl (2.5-4.9); TOTAL PROTEIN 6.8 gm/dl (6.4-8.2)
[2018-02-08] MEDS: SODIUM CHLORIDE 0.9% 1000ML 1,000 ML IV SCH (06:15)
[2018-02-08] MEDS ORDERED: POTASSIUM CHLORIDE 10 MEQ TABCR PO STA (07:44)
[2018-02-08 07:55] LABS: HEMOGLOBIN A1C 5.7 % (4.5-5.6)
[2018-02-08 08:25] VITALS: BP 111/52; PULSE 67; TEMP 36.7; O2SAT 95
[2018-02-08] MEDS: METOPROLOL SUCC 25MG EXT REL TAB PO SCH (08:29)
[2018-02-08] MEDS: SODIUM CHLORIDE 0.65% NA SOLN 45 ML (OCEAN) SCH ×2 (08:31→12:57)
[2018-02-08] MEDS ORDERED: ASPIRIN 325 MG ECTAB PO SCH (09:00)
[2018-02-08] MEDS ORDERED: LORATADINE/PSEUDOEPHEDRINE 1 TAB TABCR PO SCH (09:00)
[2018-02-08] MEDS ORDERED: AZITHROMYCIN 250 MG TAB PO SCH (09:00)
--- NOTE | 2018-02-08 10:39 | CARDIOLOGY CONSULTATION ---
DATE OF CONSULTATION: 02/08/2018 PERTINENT HISTORY: Mr. Amaya is a 57-year-old male, admitted yesterday with chest pain syndrome. This consultation was ordered to assist in his management. Of note, I followed Mr. Amaya in the outpatient setting. The patient claims that he was in his usual state of health until noon on Thursday when he developed chest discomfort immediately after carrying several heavy bags of corn. He explains as his substernal chest pain lasted for no more than 5 minutes. There was associated shortness of breath, which lasted approximately 20 minutes. No nausea, vomiting, diaphoresis, or radiation of the discomfort. The patient presented to an urgent care clinic with the above complaints and was sent to the emergency room for further care. The patient has not experienced any exertional chest discomfort recently. He further denies limiting dyspnea, syncope, presyncope, PND, orthopnea, palpitations, and lower extremity edema. The patient's cardiac history began in November of 2009 when he presented to a hospital in [place] with an acute inferior wall myocardial infarction. He had a bare metal stent placed in the proximal right coronary artery. Two days later, a drug-eluting stent was placed in the obtuse marginal branch. He also had evidence of a 40% proximal LAD and 40% first diagonal branch stenosis. Currently, the patient is resting comfortably in bed without complaints. PAST MEDICAL HISTORY: 1. Coronary artery disease -- see above. 2. 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 3. Proximal RCA bare-metal stent - November 2009. 4. Obtuse marginal drug-eluting stent - November 2009. 5. Hypertension. 6. Hypercholesterolemia. 7. Steatohepatitis. 8. Nephrolithiasis. 9. History of diverticulitis. 10. Mixed connective tissue disease. 11. Ulcerative colitis. 12. History of carpal tunnel release. MEDICATIONS: 1. Metoprolol succinate 25 mg b.i.d. 2. Aspirin 81 mg per day. 3. Lovenox 40 mg subQ daily. ALLERGIES: None. SOCIAL HISTORY: The patient is and lives alone. 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 Does not use tobacco or alcohol. FAMILY HISTORY: Father of an [place] at age 70. First [place] was at age 47. Mother at age 67 from a carcinoma. Siblings are healthy. REVIEW OF SYSTEMS: A 10-point review of systems was negative except for that described above. PHYSICAL EXAMINATION: GENERAL: This is an obese white male, seated at bedside without complaints. VITAL SIGNS: Blood pressure is 110/50 with a regular pulse of 67. Respiratory rate is 18. The patient is afebrile at 36.7 degrees Celsius. Saturation is 95% on room air. HEENT: Negative. NECK: Supple with full carotid upstrokes. No carotid bruits. Jugular venous pressure is flat at 90 degrees. There is no thyromegaly. CARDIOVASCULAR: Reveals a regular rhythm with normal S1 and S2. Heart sounds are distant. No obvious murmurs. LUNGS: Clear without rales, rhonchi, or wheezes. ABDOMEN: Obese without bruits. EXTREMITIES: Reveal intact radial artery pulse bilaterally. There is no peripheral edema. LABORATORY DATA: CBC notes hemoglobin of 13.5, hematocrit 38.6, white count 6.7, and platelet count 212,000. Electrolytes show sodium of 137, potassium 3.3, chloride 105, bicarbonate 24, BUN 14, creatinine 1.03, and a glucose of 101. AST is 121 with an ALT of 198. Four troponin I levels are normal. Initial CK was 1170 with an MB fraction of 3.1. Subsequent CK was 666. LDL cholesterol is 160 with an HDL of 30. EKG notes sinus bradycardia without abnormalities. Chest x-ray notes cardiomegaly, but no failure. IMPRESSION: Mr. Amaya experienced a 5-minute episode of chest discomfort immediately after lifting heavy bags of corn. I suspect this was musculoskeletal; however, with his history of coronary artery disease, we will proceed with a stress echocardiogram to rule out myocardial ischemia. PLAN: 1. Continue usual cardiac medications as you are. 2. Stress echocardiogram.
[2018-02-08] MEDS ORDERED: PERFLUTREN LIPID MICROSPHERE (DEFINITY) IV ONE (10:46)
[2018-02-08 11:15] VITALS: BP 166/89; PULSE 64; TEMP 36.9; O2SAT 97
[2018-02-08] MEDS ORDERED: NURSING VERBAL MED ORDER ONE (11:15)
[2018-02-08] MEDS ORDERED: AZIT-57 PO (14:00)
[2018-02-08] MEDS ORDERED: LORA-749 PO (14:00)
--- NOTE | 2018-02-08 14:01 | Discharge Instructions ---
Discharge Instructions Date of Service Feb 08, 2018. Admission Reason for Admission: Rhabdomyolysis Discharge Discharge Diagnosis / Problem: Chest pain rule out ACS, mild rhabdo, abnormal liver function test Discharge Goals Goal(s): Decrease discomfort, Improve function, Increase independence, Improve disease control, Improve nutritional status, Learn about illness, Diagnostic testing, Therapeutic intervention, Screening, Prevent Disease Progression, Specific goals Activity Recommendations Activity Limitations: resume your previous activity . Instructions / Follow-Up Instructions / Follow-Up You have chest pain, stress test was done, he will be discharged home if the stress test negative, You have mild rhabdomyolysis likely secondary to viral illness, continue plenty water intake, follow-up with PCP You have subacute sinusitis/bronchitis, I have sent prescription to your pharmacy of Claritin and azithromycin You have mild elevated liver enzymes, you need to follow-up with Dr. Mayes and primary care physician about his You have suspected obstructive sleep apnea, you need to follow-up with his PCP about his, strongly recommend to arrange outpatient sleep studies You have dyslipidemia, however Lipitor is on hold per instruction from senior clinical project manager, please double check with your senior clinical project manager Dr. Mayes before you starting Avoid liver toxic medications such as Tylenol, - you need to follow up with your primary care physician in 1 week, follow-up with Dr. Mayes as instructed - take medication as instructed, never overdose or any misuse, or take with alcohol, because misuse of medicine may cause organ damage or , call your primary care physician if have questions of medicaitons. - call your primary care physician OR go to local emergency room if has any fever/chill, chest pain, shortness of breathing, nausea/vomiting/abdominal pain , facial droop/slurry speech/local weakness, or if has any questions. - fall precaution - diet as instructed - you need to follow up with your subspecialist Current Hospital Diet Patient's current hospital diet: Regular Diet Discharge Diet Recommended Diet: AHA Diet (Heart Healthy), Low Fat Diet Procedures Procedures Performed: Exercise stress echo, Pending Studies Studies pending at discharge: yes List of pending studies: PCP please follow-up exercise stress echo formal report Laboratory Results Hemoglobin A1c Test 02/08/18 04:02 Range/Units Estimated Average Glucose 117 mg/dl Hemoglobin A1c 5.7 H 4.5-5.6 % Lipid Panel Test 02/08/18 04:02 Range/Units Triglycerides Level 207 H 0-150 mg/dl Cholesterol Level 239 H 0-200 mg/dl HDL Cholesterol 30 mg/dl Cholesterol/HDL Ratio 8.0 LDL Cholesterol, Calculated 168 mg/dl Medical Emergencies . Who to Call and When: Medical Emergencies: If at any time you feel your situation is an emergency, please call 911 immediately. . Non-Emergent Contact Non-Emergency issues call your: Primary Care Provider, Guest Services Officer . . "Provider Documentation" section prepared by Castro Urias. .
[2018-02-08 14:13] VITALS: BP 166/89; PULSE 64; TEMP 36.9; O2SAT 97
--- NOTE | 2018-02-08 14:15 | Discharge Summary ---
Discharge Summary Date of Service Feb 08, 2018. 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 New Medications: Azithromycin (Azithromycin) 250 Mg Tab 500 MG PO QAM for 3 Days, #6 TAB Loratadine & Pseudoephedrine (Claritin-D 24 Hour) 1 Tab Tab 1 TAB PO QAM for 4 Days, #4 TAB Continued Medications: Aspirin (Aspirin) 325 Mg Tab 325 MG PO DAILY Atorvastatin (Lipitor) 80 Mg Tab 80 MG PO HS, 0 Refills B-Complex W/Biotin & Folic Aci (B Complete) 1 Tab Tab Metoprolol Succ (Toprol Xl) (Toprol-Xl) 25 Mg Tabcr 25 MG PO BID, #30 0 Refills Nitroglycerin (Nitrostat) 0.4 Mg Tab 0.4 MG UT PRN, BTL Discharge Exam Doing well, no chest pain, up and walk, Review of Systems: Constitutional: No fever, No chills, No sweats, No weight loss, No weakness , No fatigue, No problem reported Eyes: No worsening of vision, No eye pain, No redness, No discharge, No diplopia, No problem reported ENT: No hearing loss, No unusual epistaxis, No nasal symptoms, No sore throat, No tinnitus, No dental problems, No trouble swallowing, No problem reported Respiratory: + cough, No sputum, No wheezing, No shortness of breath, No dyspnea on exertion, No dyspnea at rest, No hemoptysis, No problem reported Cardiovascular: No chest pain, No orthopnea, No PND, No edema, No claudication, No palpitations, No problem reported Abdomen: No pain, No nausea, No vomiting, No diarrhea, No constipation, No GI bleeding, No problem reported Musculoskeletal: No joint pain, No muscle pain, No swelling, No calf pain, No problem reported Genitourinary - Male: No hematuria, No dysuria, No urinary frequency, No urinary urgency, No urinary hesitancy, No urinary retention, No urinary incontinence, No penile discharge, No lesions, No impotence, No problem reported Neurologic: No memory loss, No paralysis, No weakness, No numbness/tingling , No vertigo, No balance problems, No problem reported Psychiatric: No depression symptoms, No anhedonism, No anxiety, No insomnia , No substance abuse, No problem reported Endocrine: No fatigue, No excessive thirst, No excessive urination, No problem reported Hematologic / Lymphatic: No abnormal bleeding/bruising, No clotting problems , No swollen lymph nodes, No night sweats, No problem reported Integumentary: No rash, No itch, No new/changing skin lesions, No color change, No bleeding, No problem reported Physical Exam: General Appearance: WD/WN, no apparent distress, + obese Eyes: normal inspection, PERRL, EOMI ENT: normal ENT inspection, hearing grossly normal Neck: supple, no adenopathy, thyroid normal Respiratory/Chest: chest non-tender, normal breath sounds, no respiratory distress, + decreased breath sounds Cardiovascular: regular rate, rhythm, no edema, no gallop Abdomen / GI: normal bowel sounds, non tender, soft, no organomegaly, no pulsatile mass Extremities: normal inspection, no calf tenderness, normal capillary refill , no pedal edema Neurologic/Psychiatric: 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 He also complained of choking and coughing when he lays flat, generalized fatigue and insomnia. Patient In observation because of chest pain rule out ACS, cardiac enzyme troponin was negative 2, cardiology saw patient, exercise stress echo was done no formal report yet, patient will be discharged to home if stress test negative , cardiology and PCP please follow-up with this. Mild rhabdomyolysis likely secondary to viral illness, recommend him plenty oral fluid intake, Insomnia due to coughing and choking when he falls asleep, possible posterior nasal discharge Subacute sinusitis/bronchitis, continue azithromycin and Claritin, Hypertension, mild increased, follow-up with PCP Sinus bradycardia likely secondary to beta-matthew stable continue current care Morbid obesity, need to have primary care physician to arrange outpatient sleep study Elevated liver enzymes slightly higher than baseline, has a long discussion with patient and [id number] in bedside, counseling about avoid nephrotoxic medications and stay away from alcohol, and follow-up with PCP Possible sleep apnea, assessment see the above Patient has mild elevated liver enzyme, associated with fatty liver in the ultrasound however ultrasound of the liver pancreas and spleen are otherwise not remarkable, advised patient follow-up with PCP for abnormal liver function test, I did consult him to get a PCP as soon as possible Discussed Lipitor possible can cause liver enzyme elevation as well, the patient cardiology feel that she will be okay to put it back off the patella, I did advise patient to double check with his commercial retoucher, and if Lipitor is not good, we should try some other options, Instructions / Follow-Up You have chest pain, stress test was done, he will be discharged home if the stress test negative, You have mild rhabdomyolysis likely secondary to viral illness, continue plenty water intake, follow-up with PCP You have subacute sinusitis/bronchitis, I have sent prescription to your pharmacy of Claritin and azithromycin You have mild elevated liver enzymes, you need to follow-up with Dr. Mayes and primary care physician about his You have suspected obstructive sleep apnea, you need to follow-up with his PCP about his, strongly recommend to arrange outpatient sleep studies You have dyslipidemia, however Lipitor is on hold per instruction from commercial retoucher, please double check with your commercial retoucher Dr. Mayes before you starting Avoid liver toxic medications such as Tylenol, - you need to follow up with your primary care physician in 1 week, follow-up with Dr. Mayes as instructed - take medication as instructed, never overdose or any misuse, or take with alcohol, because misuse of medicine may cause organ damage or , call your primary care physician if have questions of medicaitons. - call your primary care physician OR go to local emergency room if has any fever/chill, chest pain, shortness of breathing, nausea/vomiting/abdominal pain , facial droop/slurry speech/local weakness, or if has any questions. - fall precaution - diet as instructed - you need to follow up with your subspecialist Total Time Spent: Greater than 30 minutes This includes examination of the patient, discharge planning, medication reconciliation, and communication with other providers. Discharge Instructions Please refer to the electronic Patient Visit Report (Discharge Instructions) for additional information. Additional Copies To Everette Mayes M.D.
--- NOTE | 2018-02-08 17:35 | EXERCISE STRESS ECHO ---
*NOTICE TO RECEIVING LIBERTARIAN AGENCY This information is strictly Confidential and protected under [place] law. [place] law prohibits you from making any further disclosure of this information unless further disclosure is expressly permitted by the written consent of the person to whom it pertains or is authorized by law. A general authorization for the release of medical or other information is not sufficient for this purpose. Hospital accepts no responsibility if the information is made available to any other person, INCLUDING THE PATIENT. Interpretation Summary * Name: ETHEL KUO Study Date: 02/08/2018 09:26 AM BP: 156/92 mmHg * Patient Location: C.2E\S\E205\S\1 HR: 69 * : 1960 (M/d/yyyy) Gender: Male Height: 65 in * Age: 57 yrs Ethnicity: CA Weight: 255 lb * Ordering Physician: Castro Urias * Referring Physician: Self, Referred * Performed By: Isabel Del Castillo RDCS * * Reason For Study: Chest Pain * BSA: 2.2 m2 * -- Conclusions -- * 1. Negative exercise stress echo for ischemia at 85% MPHR. * 2. Negative stress ECG for ischemia. Occasional PVCs, bigeminy with stress. * 3. Average functional capacity. Exercised 6:37 min, acheiving 7.9 METS. * 4. No exercise induced chest pain. Normal hemodynamic response to exercise. * 5. Normal resting LV size and function. Mild concentric LVH. EF 50-55 %. Normal RV size and function. No significant valvular pathology. * 6. No prior studies for comparison. Procedure Details * ECHOEX, CPT #[id number] * ECHO DOPPLER, CPT #[id number] * ECHO COLOR FLOW, CPT #[id number] * The study was technically difficult with many images being suboptimal in quality. * A contrast injection of Definity was performed to improve assessment of LV function. * Contrast was injected into an intravenous site in the left arm. * One vial of Definity ultrasound contrast was diluted in normal saline to a total volume of 10 ml. A total of '5' ml of solution was administered during imaging. * Lot # [id number] of Definity utilized for procedure. * Expiration date . * The attending nurse who injected the contrast agent was Cherry Rothman RN. Left Ventricle * The left ventricle is grossly normal size. * There is mild concentric left ventricular hypertrophy. * Ejection Fraction = 50-55%. Right Ventricle * The right ventricle is grossly normal size. * The right ventricular systolic function is normal as assessed by tricuspid annular plane systolic excursion (TAPSE) (normal >1.5 cm). Atria * The left atrial size is normal. * Borderline right atrial enlargement. * No ASD detected; PFO is not assessed. Mitral Valve * The mitral valve is grossly normal. * There is no mitral valve stenosis. * Significant mitral regurgitation is absent. Tricuspid Valve * Significant tricuspid regurgitation is absent. Aortic Valve * The aortic valve opens well. * The aortic valve is trileaflet. * No hemodynamically significant valvular aortic stenosis. * There is no significant aortic regurgitation. Pulmonic Valve * The pulmonary valve is inadequately visualized, but the Doppler data is adequate for interpretation. * There is no significant pulmonary regurgitation. Great Vessels * The aortic root and proximal ascending aorta are normal sized. Pericardium * There is no pericardial effusion. Stress Parameters * Sinus rhythm, ventricular rate 65, questionable septal infarct. * With stress occasional PVCs and episodes of bigeminy * Arrhythmia noted in recovery: occasional PVC's. * Stress ECG: No ST changes. No arrhythmias. * Rest heart rate was '69' BPM. * Rest blood pressure was '156/92' * Maximum heart rate achieved was 137 bpm. * Maximum heart rate was 85 % of maximum age-predicted heart rate. * Maximum blood pressure was '185/88' * Total exercise time was '06:37' * Maximum exercise MET level achieved was '7.90' METS * Maximum treadmill speed was '3.40' miles per hour. * Maximum treadmill elevation was '14.00'% grade. Left Ventricular Findings with Stress * The study was technically adequate. MMode 2D Measurements and Calculations IVSd 1.1 cm IVSs 1.2 cm LVIDd 4.8 cm LVIDs 3.7 cm LVPWd 1.5 cm LVPWs 1.9 cm IVS/LVPW 0.72 FS 21.8 % EDV(Teich) 105.9 ml ESV(Teich) 59.2 ml EF(Teich) 44.1 % EDV(cubed) 108.4 ml ESV(cubed) 51.8 ml EF(cubed) 52.2 % % IVS thick 12.3 % % LVPW thick 28.0 % LV mass(C)d 244.0 grams LV mass(C)dI 111.3 grams/m\S\2 LV mass(C)s 229.9 grams LV mass(C)sI 104.8 grams/m\S\2 SV(Teich) 46.7 ml SI(Teich) 21.3 ml/m\S\2 SV(cubed) 56.6 ml SI(cubed) 25.8 ml/m\S\2 Ao root diam 2.6 cm Ao root area 5.3 cm\S\2 ACS 2.1 cm LA dimension 4.0 cm LA/Ao 1.5 LVAd ap4 26.5 cm\S\2 LVLd ap4 6.8 cm EDV(MOD-sp4) 88.3 ml EDV(sp4-el) 87.1 ml LVAs ap4 18.3 cm\S\2 LVLs ap4 6.5 cm ESV(MOD-sp4) 47.9 ml ESV(sp4-el) 43.7 ml EF(MOD-sp4) 45.7 % EF(sp4-el) 49.8 % LVAd ap2 23.0 cm\S\2 LVLd ap2 7.1 cm EDV(MOD-sp2) 65.8 ml EDV(sp2-el) 63.4 ml LVAs ap2 16.4 cm\S\2 LVLs ap2 6.5 cm ESV(MOD-sp2) 36.7 ml ESV(sp2-el) 34.9 ml EF(MOD-sp2) 44.1 % EF(sp2-el) 45.0 % LVLd %diff 3.0 % EDV(MOD-bp) 77.9 ml LVLs %diff 0.38 % ESV(MOD-bp) 42.0 ml EF(MOD-bp) 46.1 % SV(MOD-sp4) 40.4 ml SI(MOD-sp4) 18.4 ml/m\S\2 SV(MOD-sp2) 29.0 ml SI(MOD-sp2) 13.2 ml/m\S\2 SV(MOD-bp) 35.9 ml SI(MOD-bp) 16.4 ml/m\S\2 SV(sp4-el) 43.4 ml SI(sp4-el) 19.8 ml/m\S\2 SV(sp2-el) 28.5 ml SI(sp2-el) 13.0 ml/m\S\2 Doppler Measurements and Calculations MV E max trina 67.4 cm/sec MV A max trina 84.9 cm/sec MV E/A 0.79 MV dec time 0.24 sec Ao V2 max 133.0 cm/sec Ao max PG 7.1 mmHg Ao max PG (full) 4.7 mmHg LV V1 max PG 2.4 mmHg LV V1 max 77.6 cm/sec PA V2 max 120.8 cm/sec PA max PG 5.8 mmHg
== END 2018-02-08 14:40 | disposition home or self-care (01) | DRG 558 ==
LOC: C.EDB 09:14 → C.2E 15:37 → ENRESERV 15:57
PROVIDERS: ADMIT Internal Medicine; ATTEND Hospitalist
DX: M62.82 Rhabdomyolysis (principal); I24.9 Acute ischemic heart disease, unspecified; Z68.41 Body mass index [BMI] 40.0-44.9, adult; R07.9 Chest pain, unspecified; G47.00 Insomnia, unspecified; J01.90 Acute sinusitis, unspecified; J20.8 Acute bronchitis due to other specified organisms; R74.8 Abnormal levels of other serum enzymes; R00.1 Bradycardia, unspecified; T46.5X5A Adverse effect of other antihypertensive drugs, initial encounter; I11.9 Hypertensive heart disease without heart failure; E66.01 Morbid (severe) obesity due to excess calories; K76.0 Fatty (change of) liver, not elsewhere classified; G47.33 Obstructive sleep apnea (adult) (pediatric); E78.5 Hyperlipidemia, unspecified; I25.2 Old myocardial infarction; Z95.5 Presence of coronary angioplasty implant and graft; Z87.442 Personal history of urinary calculi; Z87.19 Personal history of other diseases of the digestive system; Z79.82 Long term (current) use of aspirin; Z79.899 Other long term (current) drug therapy; Z82.49 Family history of ischemic heart disease and other diseases of the circulatory system

== ENCOUNTER 2018-02-10 00:01 | Emergency (ER) | payer OTHER ==
[~2018-02-10] VITALS: Ht 167.6 cm; Wt 116.5 kg
[~2018-02-10 00:01] MED LIST changes: +AZIT-57 PO; +B-COTAB69; -CIPR-255 PO; +LORA-749 PO
[2018-02-10 00:04] VITALS: TEMP 36.9; Ht 167.6 cm; Wt 116.5 kg
[2018-02-10 00:40] LABS: BASO % 0.9 %; BASO ABS # 0.06 K/uL (0-0.2); EOS % 5.7 %; EOS ABS # 0.39 K/uL (0-0.5); HEMOGLOBIN 14.5 g/dL (14.0-18.0); IG# 0.08 K/uL (0.00-0.02); LYMPH ABS # 1.91 K/uL (1.2-3.4); MEAN CELL VOLUME 90.1 fL (80-100); MEAN CORPUSCULAR HEMOGLOBIN 31.9 pg (25-34); MEAN CORPUSCULAR HGB CONC 35.4 g/dl (32-36); MEAN PLATELET VOLUME 10.1 fL (7.4-10.4); MONO % 7.9 %; MONO ABS # 0.54 K/uL (0.11-0.59); NEUT % 56.3 %; NEUT ABS # 3.83 K/uL (1.4-6.5); PLATELET COUNT 229 K/uL (130-400); RED CELL DISTRIBUTION WIDTH CV 13.9 % (11.5-14.5); RED CELL DISTRIBUTION WIDTH SD 45.7 fL (36.4-46.3); WHITE BLOOD COUNT 6.81 K/uL (4.8-10.8)
[2018-02-10 00:58] LABS: ALBUMIN 3.8 gm/dl (3.4-5.0); CALCIUM 8.7 mg/dl (8.5-10.1); CREATININE 1.24 mg/dl (0.60-1.40); POTASSIUM 3.5 mmol/L (3.5-5.1)
[2018-02-10 00:59] LABS: PTT PATIENT 25.4 SECONDS (21.0-31.0)
[2018-02-10 01:03] LABS: CKMB 1.9 ng/ml (0.5-3.6); TOTAL PROTEIN 7.7 gm/dl (6.4-8.2)
--- NOTE | 2018-02-10 01:04 | EMERGENCY ROOM VISIT NOTE ---
History Report prepared by Manuel: Larissa Tyler Under the Supervision of: Dr. Karyna Marcelino M.D. First contact with patient: 00:13 Chief Complaint: SHORTNESS OF BREATH Stated Complaint: SOB Nursing Triage Summary: pt reports that he has been SOB x 2 weeks. pt was admitted here to check his heart over the weekend and everything was negative. pt reports that he is still SOB, can't sleep, has increased anxiety and non productive cough. History of Present Illness The patient is a 57 year old male who presents to the Emergency Room with complaints of persistent shortness of breath that began one day ago. He reports that he is unable to sleep because he feels short of breath while he is laying down, which worsens when he walks. The patient states that he feels his heart racing and has a dry cough. He notes that he has been experiencing some urinary retention, but denies any burning with urination. He denies any lose of weight recently. The patient states that he has a history of stents and takes Aspirin and Plavix, but denies a history of blood clots. He reports that he sees Dr. Mayes, cardiology. Source of History: patient Onset: one day ago Position: other Quality: other (shortness of breath) Timing: other (persistent) Associated Symptoms: + cough (dry) Note: Associated symptoms include: feels like heart is racing and some urine retention. Denies: burning with urination or recent weight lose. Review of Systems See HPI for pertinent positives & negatives. A total of 10 systems reviewed and were otherwise negative. Past Medical & Surgical Medical Problems: (1) Coronary artery disease (2) Kidney stones Family History Cancer Heart disease Hypertension Social History Smoking Status: Never Smoker Alcohol Use: none Drug Use: none Marital Status: Occupation Status: employed Current/Historical Medications Scheduled Aspirin (Aspirin), 325 MG PO DAILY Atorvastatin (Lipitor), 80 MG PO HS Azithromycin (Azithromycin), 500 MG PO QAM Loratadine & Pseudoephedrine (Claritin-D 24 Hour), 1 TAB PO QAM Metoprolol Succ (Toprol Xl) (Toprol-Xl), 25 MG PO BID Nitroglycerin (Nitrostat), 0.4 MG UT PRN Allergies Coded Allergies: No Known Allergies (Unverified , 02/10/18) Physical Exam Vital Signs Date Time Temp Pulse Resp B/P (MAP) Pulse Ox O2 Delivery O2 Flow Rate FiO2 02/10/18 03:10 58 20 174/101 97 02/10/18 02:53 96 Room Air 02/10/18 02:04 59 16 170/95 96 Room Air 02/10/18 01:03 66 22 169/90 94 Room Air 02/10/18 00:29 60 02/10/18 00:10 Room Air 02/10/18 00:04 36.9 66 18 192/93 96 Room Air Physical Exam Vital signs reviewed. General: Well-appearing male, in no significant distress. HEENT: No scleral icterus, PERRLA, neck supple. Atraumatic. Cardiovascular: Regular rate and rhythm, no extra sounds. Pulmonary: Clear to auscultation bilaterally, normal work of breathing on room air. Abdomen: Obese abdomen. Soft, nontender, nondistended, positive bowel sounds. Musculoskeletal: Atraumatic, no peripheral edema. Neurologic: Patient awake alert and oriented x 3 Skin: Warm, dry, no rash Medical Decision & Procedures ER Provider Diagnostic Interpretation: Radiology results as stated below per my review and radiologist interpretation: Chest x-ray: Some prominence. Interstitial prominence. Borderline cardiomegaly. No focal lung consolidation. No significant change from previous which was 02/07/18. CTA CHEST: No pulmonary embolus identified. No aortic aneurysm or dissection. No acute pulmonary parenchymal abnormality identified. Mild dependent atelectasis bilaterally. Mild hepatomegaly. Small amount of pericardial fluid. Coronary artery calcifications. Hepatic steatosis. Laboratory Results 02/10/18 00:25 Red Blood Count 4.55, Mean Corpuscular Volume 90.1, Mean Corpuscular Hemoglobin 31.9, Mean Corpuscular Hemoglobin Concent 35.4, Mean Platelet Volume 10.1, Neutrophils (%) (Auto) 56.3, Lymphocytes (%) (Auto) 28.0, Monocytes (%) (Auto) 7.9, Eosinophils (%) (Auto) 5.7, Basophils (%) (Auto) 0.9, Neutrophils # (Auto) 3.83, Lymphocytes # (Auto) 1.91, Monocytes # (Auto) 0.54, Eosinophils # (Auto) 0.39, Basophils # (Auto) 0.06 02/10/18 00:25 Test 02/10/18 00:02/10/18 01:05 White Blood Count 6.81 K/uL (4.8-10.8) Red Blood Count 4.55 M/uL (4.7-6.1) Hemoglobin 14.5 g/dL (14.0-18.0) Hematocrit 41.0 % (42-52) Mean Corpuscular Volume 90.1 fL (80-100) Mean Corpuscular Hemoglobin 31.9 pg (25-34) Mean Corpuscular Hemoglobin Concent 35.4 g/dl (32-36) Platelet Count 229 K/uL (130-400) Mean Platelet Volume 10.1 fL (7.4-10.4) Neutrophils (%) (Auto) 56.3 % Lymphocytes (%) (Auto) 28.0 % Monocytes (%) (Auto) 7.9 % Eosinophils (%) (Auto) 5.7 % Basophils (%) (Auto) 0.9 % Neutrophils # (Auto) 3.83 K/uL (1.4-6.5) Lymphocytes # (Auto) 1.91 K/uL (1.2-3.4) Monocytes # (Auto) 0.54 K/uL (0.11-0.59) Eosinophils # (Auto) 0.39 K/uL (0-0.5) Basophils # (Auto) 0.06 K/uL (0-0.2) RDW Standard Deviation 45.7 fL (36.4-46.3) RDW Coefficient of Variation 13.9 % (11.5-14.5) Immature Granulocyte % (Auto) 1.2 % Immature Granulocyte # (Auto) 0.08 K/uL (0.00-0.02) Prothrombin Time 10.6 SECONDS (9.0-12.0) Prothromb Time International Ratio 1.0 (0.9-1.1) Activated Partial Thromboplast Time 25.4 SECONDS (21.0-31.0) Partial Thromboplastin Ratio 1.0 D-Dimer 740 ug/L FEU (0-500) Anion Gap 8.0 mmol/L (3-11) Est Creatinine Clear Calc Drug Dose 77.0 ml/min Estimated GFR () 73.3 Estimated GFR (Non- 63.2 BUN/Creatinine Ratio 15.7 (10-20) Calcium Level 8.7 mg/dl (8.5-10.1) Total Bilirubin 0.4 mg/dl (0.2-1) Direct Bilirubin 0.1 mg/dl (0-0.2) Aspartate Amino Transf (AST/SGOT) 101 U/L (15-37) Alanine Aminotransferase (ALT/SGPT) 198 U/L (12-78) Alkaline Phosphatase 132 U/L (45-117) Total Creatine Kinase 422 U/L (39-308) Creatine Kinase MB 1.9 ng/ml (0.5-3.6) Creatine Kinase MB Ratio 0.5 (0-3.0) Troponin I 0.020 ng/ml (0-0.045) Pro-B-Type Natriuretic Peptide 83 pg/ml (0-900) Total Protein 7.7 gm/dl (6.4-8.2) Albumin 3.8 gm/dl (3.4-5.0) Lipase 227 U/L (73-393) Urine Color YELLOW Urine Appearance CLEAR (CLEAR) Urine pH 5.0 (4.5-7.5) Urine Specific [place] 1.023 (1.000-1.030) Urine Protein NEG (NEG) Urine Glucose (UA) NEG (NEG) Urine Ketones NEG (NEG) Urine Occult Blood NEG (NEG) Urine Nitrite NEG (NEG) Urine Bilirubin NEG (NEG) Urine Urobilinogen NEG (NEG) Urine Leukocyte Esterase SMALL (NEG) Urine WBC (Auto) 5-10 /hpf (0-5) Urine RBC (Auto) 0-4 /hpf (0-4) Urine Hyaline Casts (Auto) 1-5 /lpf (0-5) Urine Epithelial Cells (Auto) 10-20 /lpf (0-5) Urine Bacteria (Auto) NEG (NEG) Laboratory results per my review. ECG Per My Interpretation Indication: SOB/dyspnea Rate (beats per minute): 59 Rhythm: sinus bradycardia Findings: no acute ischemic change, no ectopy, other (incomplete left bundle branch, QTC is 433) Change: no significant change (02/07/18) ED Course 0030: Past medical records reviewed. The patient was evaluated in room A11. A complete history and physical examination was performed. 0056: The patient has an elevated D-dimer. 0145: Ordered Ioversol 100ml IV. 0242: Upon reevaluation, the patient appeared to have improvement of his symptoms. His ambulatory pulse ox is 96%. I discussed findings with him. He verbalized agreement of the treatment plan. The patient was discharged home. Medical Decision Differential diagnosis: Etiologies such as infections, reactive airway disease, pneumonia, pneumothorax , COPD, CHF, cardiac ischemia, pulmonary embolism, musculoskeletal, gastrointestinal, as well as others were entertained. This pt was evaluated and appeared to be in no distress. IV access was obtained and laboratory work was drawn. The patient was placed on the court monitor and found to be in a normal sinus rhythm. The patient's vital signs are stable, he is in no respiratory distress on room air. Oxygenation has remained in the mid to high 90s. Chest x-ray was obtained and is clear. Laboratory work reveals a elevated d-dimer. AST, ALT, alk phos and total CK are slightly elevated as noted previously. CT scan of the chest was performed to rule out PE, the study is negative. On reevaluation, patient complained of dyspnea although had no clinical findings. An ambulatory pulse ox was obtained on room air the patient was able to maintain saturations of 96%. The etiology of the patient's dyspnea is unclear. He is noted to be hypertensive. He has been hypertensive on the last few visits including his observation stay. Patient was advised to follow-up with Dr. Mayes, his instruments sales representative for further blood pressure management. He was advised to maintain a low-salt diet and to return to the ER for worsening of symptoms or any medical concerns. Medication Reconcilliation Current Medication List: was personally reviewed by me Blood Pressure Screening Patient's blood pressure: Elevated blood pressure Blood pressure disposition: Referred to PCP Impression Primary Impression: Dyspnea Additional Impression: Hypertension Scribe Attestation The scribe's documentation has been prepared under my direction and personally reviewed by me in its entirety. I confirm that the note above accurately reflects all work, treatment, procedures, and medical decision making performed by me. Departure Information Dispostion Home / Self-Care Referrals Everette Mayes M.D. (PCP) Forms HOME CARE DOCUMENTATION FORM, IMPORTANT VISIT INFORMATION Patient Instructions My [facility] Additional Instructions Diagnosis: Shortness of breath, hypertension Maintain a low salt diet, < 2 gm daily Continue your medications as prescribed. Please have your blood pressure rechecked as soon as possible with your primary physician. You may require further pulmonary testing. Return to the emergency department for worsening of symptoms or any medical concerns. Problem Qualifiers
[2018-02-10] MEDS ORDERED: OPTIRAY 320 IV PRN (01:45)
[2018-02-10 03:10] VITALS: BP 174/101; PULSE 58; O2SAT 97
--- NOTE | 2018-02-10 07:20 | DIAGNOSTIC IMAGING REPORT ---
CHEST ONE VIEW PORTABLE HISTORY: Short of breath. COMPARISON: Chest 02/07/2018. FINDINGS: The heart remains mildly enlarged. No pneumothorax. No pleural effusions. Mild interstitial thickening, unchanged. No evidence for pulmonary edema. No new focal lung consolidations to suggest pneumonia. IMPRESSION: Stable mild cardiomegaly and mild interstitial thickening. No evidence for pulmonary edema. Electronically signed by: Steve Chandra M.D. 02/10/2018 7:19 AM Dictated Date/Time: 02/10/2018 7:18 AM
--- NOTE | 2018-02-10 07:35 | DIAGNOSTIC IMAGING REPORT ---
CHEST CTA for PULMONARY ARTERIES CT DOSE: 754.13 mGy.cm HISTORY: Atypical chest pain. Short of breath. TECHNIQUE: Multiaxial CT images of the chest were performed following the intravenous administration of contrast to evaluate the pulmonary arteries. Maximal intensity projection images were also obtained. A dose lowering technique was utilized adhering to the principles of ALARA. COMPARISON STUDY: Chest 02/10/2018. FINDINGS: Normal caliber thoracic aorta with no evidence for dissection. No significant pleural or pericardial effusions. No evidence for pulmonary embolus. No mediastinal or hilar lymphadenopathy. Hepatic steatosis. The visualized spleen and adrenal glands are unremarkable. Midline subcutaneous cystic lesion seen within the upper back. This favors a sebaceous cyst. No fractures within the visualized osseous structures. No pneumothorax. The central airways are patent. No pneumothorax. A 2 mm subpleural nodule within the right lung apex on image 258. 5 mm subpleural nodule in the right minor fissure on image 157. This is stable dating back to 2014 examination and is therefore considered to be benign. A 3 mm nodule within the lingula on image 165. This is stable compared to 2017 examination. An 11 mm nodule within the left lower lobe in image 152. IMPRESSION: 1. No evidence for pulmonary embolus. 2. An 11 mm nodule within the left lower lobe. Recommend follow-up PET/CT and pulmonary consultation to exclude a primary bronchogenic malignancy. 3. A few additional subcentimeter nodules which are likely benign. 4. These findings were discussed with Dr. Karyna Marcelino at 7:34 AM on 02/10/2018. Electronically signed by: Steve Chandra M.D. 02/10/2018 7:34 AM Dictated Date/Time: 02/10/2018 7:19 AM
== END 2018-02-10 03:11 | disposition home or self-care (01) ==
LOC: C.EDB 00:02 → C.EDA 03:11
DX: R06.00 Dyspnea, unspecified (principal); I10 Essential (primary) hypertension; R00.1 Bradycardia, unspecified; Z95.5 Presence of coronary angioplasty implant and graft; Z79.82 Long term (current) use of aspirin; Z79.01 Long term (current) use of anticoagulants; I25.10 Atherosclerotic heart disease of native coronary artery without angina pectoris; Z87.442 Personal history of urinary calculi

== ENCOUNTER → 2018-02-16 | Outpatient (CLI) | payer OTHER ==
[~2018-02-16] MED LIST changes: -B-COTAB69
[2018-02-16 15:30] VITALS: BP 162/81; PULSE 72; Ht 167.6 cm
== END | disposition home or self-care (01) ==
LOC: C.NEUR 12:48
PROVIDERS: ATTEND Internal Medicine Pulmonary Disease
DX: R06.83 Snoring (principal); R53.83 Other fatigue; G47.19 Other hypersomnia; E66.9 Obesity, unspecified; I25.10 Atherosclerotic heart disease of native coronary artery without angina pectoris

== ENCOUNTER → 2018-02-23 | Outpatient (CLI) | payer OTHER ==
--- NOTE | 2018-02-24 06:18 | PAP/PSG TECHNICIAN REPORT ---
[facility] Dish Carrier Polysomnogram Report Study name: None Report date: 02/24/2018 Study date: 02/23/2018 Referring Physician: Evan Waller M.D. Name: ETHEL AMAYA Interpreting Physician: Evan Waller M.D. Date of : 1960 Dish Carrier: Zulay Rouse RPSGT. Sex: Male Age: 57 StudyType: PSG Weight: 257.3 lbs Height: 57 years, Height 5' 6" Neck Circum:19in. BMI: 41.52 Medications: ASA 81mg, Lisinopril 2.5mg, Metoprolol 25mg, Nitroglycerin Patient History Study started on room air with no ETCO2 monitoring in room # 6. 57 yr old male here tonight for a diagnostic psg. He has been told that he snores loudly. He wakes up frequently to use the restroom. 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 Neck circ=19inches. Parameters Monitored NPSG: E1-M2, E2-M1, Fp1-M2, Fp2-M1, F3-M2, F4-M2, F4-M1, C3-M2, C4-M2, C4-M1, O1-M2, O2-M2, O2-M1, T3-M2, T4-M1, P3-M2, P4-M1, CHIN1, CHIN2, HR, EKG, Legs, PFLOW, SNOR, FLOW, CFLOW, Tidal Volume, THOR, ABDO, SpO2, PLTH, CPRESS, ETCO2 Wave, ETCO2, pH Sleep Architecture Sleep Stages Time at Lights Off 10:00:58 PM STAGES Time (min.) TST (%) Time at Lights On 5:26:58 AM Wake 316.0 -- Total Recording Time (TRT) 446.00 min. N1 9.5 7 Total Sleep Period (TSP) 329.5 min. N2 85.5 66 Total Sleep Time (TST) 130.0min. N3 35.0 27 Awake Time 316.0 min. REM 0.0 0 Wake after Sleep Onset 202.5 min. Sleep Efficiency (SE) 29 % Sleep Onset Latency ([place]) 113.5 min. Number of Stage 1 Shifts None Awakenings 9 Stage Changes 38 Number of REM periods N/A REM 0.0 0 REM Latency NONE min. NREM 130.0 100 Body Position Analysis Supine Right Left Side Prone Vertical Total Sleep Time (min.) 121.8 0.0 130.0 130.00 0.0 0.0 Total Sleep Time (%) 0% 0% 100% 100 0% N/A% Total Sleep Time REM (min.) 0.0 0.0 0.0 None 0.0 0.0 Total Sleep Time NREM (min.) 0.0 0.0 130.0 None 0.0 0.0 Intermittent Wake (min.) 121.8 71.7 122.5 None 0.0 0.0 Total Sleep Period (%) 26% None None None None None Arousals Myoclonus (PLM) * Events Count Index Events Count Index Spontaneous 2 1 Events Awake (PLMW) 356 67.6 Respiratory 0 0.0 Events Asleep w/ Arousal (PLMA) 10 4.6 PLM 10 5 Events Asleep w/o Arousal (PLMS) 72 33.2 Snoring 3 1 Total Asleep 82 37.8 Total 15 7 Total 438 59 Respiratory Analysis * CA OA MA CH H RERA Total Count 0 0 0 0 0 0 0 Index 0.0 0.0 0.0 0 0.0 0 0.0 Mean Duration 0.0 0.0 0.0 0.00 0.0 0.0 0.0 Longest Duration 0.0 0.0 0.0 0.00 0.0 0.0 0.0 Respiratory Event Summary Total Supine ~Supine Right Left Prone REM NREM Apneas Count 0 N/A 0 N/A 0 N/A N/A 0 Index 0.0 N/A 0 N/A 0.0 N/A N/A 0 Hypopneas (4% Desat) Count 0 N/A 0 N/A 0 N/A N/A 0 Index 0.0 N/A 0 N/A 0.0 N/A N/A 0.0 Apneas & All Hypopneas Count 0 N/A 0 N/A 0 N/A N/A 0 Index 0.0 N/A 0 N/A 0 N/A N/A 0.0 Respiratory Events (General Manager Food+All Hyp+RERA) Count 0 N/A 0 N/A 0 N/A N/A 0 Index 0.0 N/A 0 N/A 0.0 N/A N/A 0.0 Respiratory Related Arousal Count 0 N/A 0 N/A 0 N/A N/A 0 Index 0.0 N/A 0 N/A 0 N/A N/A 0 Snoring Analysis Supine Right Left Prone REM NREM Total Snore duration 11.1 min Snores count N/A N/A 616 N/A N/A 616 616 Snore mean duration 1.1 Sec Snores index N/A N/A 284 N/A N/A 284.3 284.3 TST with snoring (%) 8.5% Desaturation Event Summary: Minimum %SpO2 Event Count Mean/Min/Max Duration(sec.) Desaturation Index % Time In Bed > 90 3 32.3 / 19.5 / 44.8 0.4 100.0 86 - 90 0 N/A 0.0 0.0 81 - 85 0 N/A 0.0 0.0 76 - 80 0 N/A 0.0 0.0 71 - 75 0 N/A 0.0 0.0 66 - 70 0 N/A 0.0 0.0 61 - 65 0 N/A 0.0 0.0 56 - 60 0 N/A 0.0 0.0 51 - 55 0 N/A 0.0 0.0 < 50 0 N/A 0.0 0.0 Total REM NREM Awake <50% 0.0 min. 0.0 min. 0.0 min. 0.0 min. 51 - 60% 0.0 min. 0.0 min. 0.0 min. 0.0 min. 61 - 70% 0.0 min. 0.0 min. 0.0 min. 0.0 min. 71 - 80% 0.0 min. 0.0 min. 0.0 min. 0.0 min. 81 - 90% 0.0 min. 0.0 min. 0.0 min. 0.0 min. 91 - 100% 434.3 min. 0.0 min. 129.0 min. 305.3 min. Average 93 0 93 94 Minimum SpO2 90 N/A 91 90 Desaturation Event Index 0.4 0.0 0.0 0.6 # Desat. Events below 89% N/A N/A N/A N/A Time(%) with Saturation below 89% 0.0 0.0 0.0 0.0 Time(min.) with Saturation below 89% 0.0 0.0 0.0 0.0 Time (mins) REM (mins) NREM (mins) % of TST SpO2 Below 90% N/A N/A NN/A 0.0 SpO2 Below 88% 0 0 0 0 Heart Rate Analysis Min (bpm) Max (bpm) Average (bpm) Awake 54 127 64 NREM 52 98 58 REM N/A N/A N/A Overall 52 98 58 Supplemental O2 Values Minimum O2 level: None Value Start Time End Time Dish Carrier Comments Mr. Amaya slept in the right, left and supine positions. No cardiac arrhythmia noted. Some leg movements were noted. No bruxism noted. Snoring was noted and scored as a 3 on a scale of 1 through 5. (0=no snoring, 5=snoring loud enough to be heard through a closed door or down the [address] way) He awoke to use the restroom 1 time during the night. He stated that this is a normal night for him. The final report will be interpreted and signed by a sleep physician. The completed physician report will then be placed in the patient medical record. Therapy (cm H2O) 0 TIB (min.) 446.0 TST (min.) 130.0 Sleep Onset (min.) 113.5 REM Onset From Sleep (min.) NONE Sleep Efficiency % 29 Wakefulness (%) 71 Wakefulness (min.) 316.0 NREM 1 (%) 7 NREM 1 (min.) 9.5 NREM 2 (%) 66 NREM 2 (min.) 85.5 NREM 3 (%) 27 NREM 3 (min.) 35.0 REM (%) 0 REM (min.) 0.0 # Arousals 15 Arousal Index 7 # Snore 616 Snore Index 284.3 AHI 0.0 AHI Supine N/A AHI Non-Supine 0 NREM AHI 0.0 REM AHI N/A RDI 0.0 # Obstructive Apnea 0 # Central Apnea 0 # Mixed Apnea 0 # Hypopneas 0 RERAs 0 Total Respiratory Events 2 Time Below SpO2 89% (min.) 0.0 Mean NREM SpO2 (%) 93 Mean REM SpO2 (%) N/A Mean Sleep SpO2 (%) 93 Min NREM SpO2 (%) 91 Min REM SpO2 (%) N/A Position Supine (min.) 121.8 Position Non-supine (min.) 130.0 LM Index Sleep 37.8 LM Index NREM 37.8 LM Index REM N/A Mean Heart Rate (bpm) 58 Min Heart Rate (bpm) 52
--- NOTE | 2018-02-26 12:05 | POLYSOMNOGRAPH REPORT ---
CLINICAL DATA: A 57-year-old male with a BMI of 41.5, referred by MAUREEN Pillai, of occupational medicine for evaluation of possible sleep apnea. 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 SLEEP ARCHITECTURE: Total sleep period was 329.5 minutes. Total sleep time was only 130 minutes, all non-REM sleep. Sleep latency was delayed at 113.5 minutes. Sleep efficiency was 29%. Wake after sleep onset was 202.5 minutes. Sleep consisted of stage N1 7%, stage N2 66% and stage N3 27%. AROUSAL DATA: 15 arousals were recorded for an index of 7 per hour. 10 were due to PLMs events. PERIODIC LIMB MOVEMENT DATA: 82 limb movements during sleep were noted for an index of 37.8 per hour with an arousal index of 4.6 per hour. These limb movements were mildly to moderately elevated. RESPIRATORY DATA: No evidence of sleep apnea was seen. The AHI was 0. OXIMETRY DATA: No hypoxemia was seen. Oxygen royer was 91%. Mean saturation was 93%. EKG: Heart rates ranged from 52-98 beats per minute. No arrhythmias were noted. ISSUING OPERATOR'S COMMENTS: The patient slept in the right, left and supine position. Snoring was moderate, rated 3 on a scale of 1 through 5. Leg movements were noted frequently throughout the night. IMPRESSION: No evidence of clinically significant sleep apnea/hypopnea or nocturnal hypoxemia on this patient's sleep study which was quite limited with only 120 minutes of sleep and no REM sleep achieved. The patient did have frequent limb movements, possibly due to periodic limb movement disorder. RECOMMENDATIONS: The patient should continue to practice good sleep hygiene. If clinically indicated, treatment for PLMD could be considered. There is no definite evidence of sleep apnea seen on this limited sleep study. [facility]
== END | disposition home or self-care (01) ==
LOC: C.NEUR 21:00
PROVIDERS: ATTEND Internal Medicine Pulmonary Disease
DX: I25.10 Atherosclerotic heart disease of native coronary artery without angina pectoris (principal); G47.19 Other hypersomnia; R53.83 Other fatigue; E66.9 Obesity, unspecified; R06.83 Snoring

== ENCOUNTER → 2018-03-02 | Outpatient (CLI) | payer OTHER ==
[2018-03-02 10:10] LABS: ALBUMIN 3.8 gm/dl (3.4-5.0); TOTAL PROTEIN 7.8 gm/dl (6.4-8.2)
== END | disposition home or self-care (01) ==
LOC: C.LAB1850 08:51
PROVIDERS: ATTEND Physician Assistant Medical
DX: R74.8 Abnormal levels of other serum enzymes (principal); K76.0 Fatty (change of) liver, not elsewhere classified; R76.8 Other specified abnormal immunological findings in serum; M35.1 Other overlap syndromes; G47.61 Periodic limb movement disorder

== ENCOUNTER 2023-03-03 12:29 | Observation (INO) ==
[2023-03-03] MEDS ORDERED: SODIUM CHLORIDE 0.9% 1000ML 1,000 ML IV STA (13:16)
[2023-03-03 14:07] LABS: Basophils # (auto) 0.09 K/uL (0-0.2); Basophils % (auto) 1.4 %; Eosinophils # (auto) 0.18 K/uL (0-0.50); Eosinophils % (auto) 2.9 %; Hematocrit (blood only) 33.5 % (42.0-52.0); Hemoglobin 10.6 g/dl (14.0-18.0); Immature Granulocytes # (auto) 0.06 K/uL (0.01-0.20); Lymphocytes # (auto) 1.55 K/uL (1.2-3.4); Lymphocytes % (auto) 24.8 %; Mean Corpuscular Hemoglobin 27.5 pg (25.0-34.0); Mean Corpuscular Hgb Conc 31.6 g/dL (32.0-36.0); Mean Platelet Volume 9.4 fL (9.4-12.4); Monocytes # (auto) 0.58 K/uL (0.11-0.59); Monocytes % (auto) 9.3 %; Neutrophils # (auto) 3.78 K/uL (1.40-6.50); Neutrophils % (auto) 60.6 %; Platelet Count 354 K/uL (130-400); RDW Coefficient of Variation 14.2 % (11.5-14.5); RDW Standard Deviation 44.9 fL (36.4-46.3); Red Blood Count 3.85 M/uL (4.70-6.10); White Blood Count 6.24 K/ul (4.8-10.8)
[2023-03-03 14:22] LABS: INR 1.1 (0.9-1.1); Prothrombin Time 11.6 Seconds (9.0-12.0)
[2023-03-03 14:28] LABS: Albumin Level 4.1 gm/dl (3.4-5.0); Bilirubin,Total 0.5 mg/dl (0.2-1.0); Calcium 9.7 mg/dl (8.6-10.3); Magnesium 2.1 mg/dl (1.7-2.4); Potassium 4.5 mmol/L (3.5-5.1)
--- NOTE | 2023-03-03 14:32 | XRay Report ---
XR chest 1V portable HISTORY: 62 years-old Male Chest pain, nonspecific acute chest pain COMPARISON: 10/09/2022 TECHNIQUE: AP view of the chest FINDINGS: Cardiac silhouette is enlarged. No pneumothorax, pleural effusion, airspace consolidation or pulmonar y edema. Degenerative changes of the shoulders and spine. IMPRESSION: Cardiomegaly without acute process. ACT 112: Negative or not required by law. The above report was generated using voice recognition software. It may contain grammatical, syntax o r spelling errors. Electronically signed by: Malcolm Mccoy M.D. 03/03/2023 2:31 PM
[2023-03-03 14:35] LABS: Albumin Globulin Ratio 1.1 (0.9-2); BUN Creatinine Ratio 17.6 (10-20); Creatinine Clr Calc Pharmacy 54.2 ml/min; Est GFR (African American) 57.1 ml/min; Est GFR (Non-African American) 49.3 ml/min; Globulin 3.6 gm/dl (2.5-4.0); Phosphorus 4.5 mg/dl (2.5-4.9); Total Protein 7.7 gm/dl (6.0-8.3)
[2023-03-03 14:37] LABS: Troponin I High Sensitivity 10.8 pg/ml (0-20)
[2023-03-03 14:45] LABS: Thyroid Stimulating Hormone 0.388 uIu/ml (0.300-4.500)
[2023-03-03 14:47] LABS: T4 Free Thyroxine 0.91 ng/dl (0.61-1.60)
[2023-03-03] MEDS ORDERED: ONDANSETRON INJ 2 MG/ML 2 ML VIAL IV STA (15:00)
[2023-03-03] MEDS ORDERED: FAMOTIDINE 20MG IV PUSH 20 MG/5 ML SYR IV STA (15:00)
[2023-03-03] MEDS ORDERED: HYDROCORTISONE SOD SUCCINATE 100 MG/2 ML VIAL IV STA (15:01)
--- NOTE | 2023-03-03 15:13 | Electrocardiogram Report ---
Test Reason : Blood Pressure : / mmHG Vent. Rate : 065 BPM Atrial Rate : 065 BPM P-R Int : 156 ms QRS Dur : 112 ms QT Int : 426 ms P-R-T Axes : -05 017 -15 degrees QTc Int : 443 ms Poor data quality, interpretation may be adversely affected Normal sinus rhythm Normal ECG When compared with ECG of 09-OCT-2022 09:25, No significant change was found Confirmed by Josh Matthew ([id number] on 03/03/2023 3:13:42 PM Referred By: Confirmed By:Josh Matthew
[2023-03-03 16:29] LABS: Appearance Urine Clear (Clear); Bilirubin Urine Negative (Negative); Blood Urine Negative (Negative); Color Urine Yellow; Glucose Urine UA Negative (Negative); Ketones Urine Negative (Negative); Leukocyte Esterase Urine Negative (Negative); Nitrite Urine Negative (Negative); Protein Urine Negative (Negative); Specific Gravity Urine 1.011 (1.000-1.030); Urobilinogen Urine Negative (Negative)
--- NOTE | 2023-03-03 16:29 | Emergency Department Note ---
Impression & Plan Hypopituitarism, Noncompliance with medication regimen, Dizziness, Nausea ED Provider Note NAME: ETHEL KUO AGE: 62 SEX: M ARRIVES VIA: Walk-In INFORMANT: Patient ED PROVIDER(S): Kemar Burrows MD CHIEF COMPLAINT: Weakness, nausea, unintentional noncompliance with medications PLAN: Disposition: Admit MEDICAL DECISION MAKING: The patient is a pleasant 62-year-old gentleman with a past medical history of pituitary macroadenoma status post resection in December of this year at [facility] with subsequent adrenal insufficiency on hydrocortisone, type 2 diabetes, h yperlipidemia, hypertension, CAD who presents to the emergency department via walk-in, accompanied by his sister for evaluation of symptoms of generalized weakness, decreased appetite with poor oral intake, lightheadedness. The patient sister is concerned because she noticed the hydrocortisone she had left out for him was still in the pill container and he may have taken extra of his Synthroid. Patient lives at home by himself. He denies any fevers, cough congestion, vomiting, diarrhea or urinary symptoms. On arrival the patient is no acute distress, afebrile with stable vital signs. He appears clinically dry. He has no focal neurologic deficits. EKG without overt acute ischemia. CXR negative for acute cardiopulmonary process. WBC and platelets within normal limits. H/H 10.6/33.5 decreased from prior however in the setting of his recent surgeries., Creatinine 1.4 similar to prior values and consistent with the patient's clinical dry appearance. Electrolytes and LFTs without significant abnormality. Ammonia is not elevated. CPK is not elevated. High-sensitivity troponin 10.8, within normal limits. Lipase within normal limits. TSH, free T4 within normal limits. CT of the head and CT abd/pelvis were ordered for completeness though the patient reports recently seen by his ENT specialist at [facility] following his surgery and they had no concerns and lab results do not suggest acute intra- abdominal process. When patient went to CT imaging he could not complete the s tudy as he felt claustrophobic. Upon my reevaluation the patient did appear improved appearing after IV fluid hydration, Pepcid, Zofran and 50 mg of IV hydrocortisone for suspicion of adrenal insufficiency given his noncompliance with his medications. We did discuss that this is likely contributing to his symptoms given he has not taken this for a number of days. However the patient and his sister expressed concern that he lives alone and given he has been feeling dizzy and was unable to manage his medications request he be admitted for further treatment however open to the idea of inpatient rehab. Case was [place] Mac, [facility] [place], who will evaluate the patient for admission. Triage Nursing notes reviewed and agree them. Prior/outside medical records reviewed Vital Signs: reviewed Differential diagnosis: Infection, dehydration, metabolic abnormality, hypo/hyperglycemia, electrolyte disturbance, anemia, hypoxia, cardiac sources, intracerebral event, toxicologic, neurologic, as well as other pathologies. ER treatment provided: See below. Diagnostics interpreted by me: ECG: Normal sinus rhythm, 65 bpm, no ectopy, no overt ST elevation or depression, QTc 443, QRS 112 Cardiac Monitoring: An order for continuous cardiac monitoring was placed and demonstrated Normal sinus rhythm, 65 bpm, no ectopy. Laboratory studies: See below Imaging studies: See below Consultation(s): Dr. Otoole, [facility] [place] HPI: The patient is a pleasant 62-year-old gentleman with a past medical history of pituitary macroadenoma status post resection in December of this year at [facility] with subsequent adrenal insufficiency on hydrocortisone, type 2 diabetes, hyperlipidemia, hypertension, CAD who presents to the emergency department via walk-in, accompanied by his sister for evaluation of symptoms of generalized weakness, decreased appetite with poor oral intake, lightheadedness. The patient sister is concerned because she noticed the hydrocortisone she had left out for him was still in the pill container and he may have taken extra of his Synthroid. Patient lives at home by himself. He denies any fevers, cough congestion, vomiting, diarrhea or urinary symptoms. ROS: See above HPI for pertinent positives & negatives. A total of 10 systems reviewed and were otherwise negative. VITALS:See Below PHYSICAL EXAMINATION: GENERAL: Awake, alert, fatigued-appearing, in no distress HENT: Normocephalic, atraumatic. Oropharynx with dry mucous membranes and otherwise unremarkable. EYES: Normal conjunctiva. Sclera non-icteric. EOMI. No nystamgus. PEARRL. NECK: Supple. No nuchal rigidity. FROM. No JVD. RESPIRATORY: Clear to auscultation. CARDIAC: Regular rate, normal rhythm. Extremities warm and well perfused. Pulses equal. ABDOMEN: Soft, non-distended. No tenderness to palpation. No rebound or guarding. No masses. RECTAL: Deferred. MUSCULOSKELETAL: Chest examination reveals no tenderness. The back is symmetri leta on inspection without obvious abnormality. There is no CVA tenderness to palpation. No joint edema. LOWER EXTREMITIES: Calves are equal size bilaterally and non-tender. No edema. No discoloration. NEURO: Chronic right facial weakness. No new sensory or motor deficits noted. 5/5 strength and SILT x 4 extremities. Intact finger to nose. SKIN: No rash or jaundice noted. Kemar Burrows MD Past Med/Surg History Medical History Benign prostatic hyperplasia with urinary obstruction Coronary artery disease Diverticulitis DM2 (diabetes mellitus, type 2) Elevated LFTs Hyperlipidemia Hypertension Kidney stones Left ureteral calculus Mixed connective tissue disease NSTEMI (non-ST elevated myocardial infarction) Periodic limb movement disorder Unstable angina Surgical History H/O lithotripsy Stented coronary artery [place] teeth removed Family History Unknown Heart disease Cancer Mother Breast cancer Father Coronary heart disease Diabetes Brother Coronary heart disease Skin cancer Sister No problems noted. Brother No problems noted. Son No problems noted. Other Hypertension Denies family history of Ovarian cancer Prostate cancer Myocardial infarction Colorectal cancer Social History Smoking Status: Former smoker Tobacco Type: Cigarettes Age Started Using Tobacco: 15; Age Quit Using Tobacco: 25; packs per day: 1; Second Hand Exposure: No; Do You Dip or Chew Tobacco: No; Tobacco Cessation Education Requested by Patient: No Hx Alcohol Use: No Hx Substance Use: No Preferred Language: Icelandic Communication Ability: Effective Visual Impairment: No Limitations Hearing Ability: Normal Colorist [place] Required: No Beliefs That Will Affect Care: None marital status: Single Current Living Situation: Alone current occupational status: employed current occupation: [employer] Other Information That Helps Us Care for You: No Feels Safe at Home: Yes Safety Concerns: Feels Safe At This Time Childhood Exposure to Second-Hand Smoke: No Diet Comment: regular Dental Care, Regularly: No Physical Activity Frequency: Does not Exercise Seatbelt Use: always Sunscreen Use: No Assistive Devices: Cane and Glasses Allergies Allergies Allergy/AdvReac Type Severity Reaction Status Date / Time No Known Allergies Allergy Verified 03/03/23 16:57 Home Meds Home Medications Medication Instructions Recorded Confirmed aspirin 81 mg tablet,delayed 81 mg PO DAILY 04/15/19 03/03/23 release (Prince Low Dose Aspirin) bisacodyl 10 mg rectal suppository 10 mg OR DAILY PRN Constipation 01/29/23 03/03/23 celecoxib 200 mg capsule (Celebrex) 200 mg PO BID PRN Pain 01/29/23 03/03/23 clopidogrel 75 mg tablet 75 mg PO DAILY 01/29/23 03/03/23 hydrocortisone 5 mg tablet See Rx Instructions .Route .COMPLEX 01/29/23 03/03/23 insulin glargine 100 unit/mL (3 0 unit subcut DIRECTED 01/29/23 03/03/23 mL) subcutaneous pen (Lantus Solostar U-100 Insulin) metoprolol tartrate 25 mg tablet 25 mg PO BID 01/29/23 03/03/23 nitroglycerin 0.3 mg sublingual 0.3 mg sublingual DIRECTED PRN 01/29/23 03/03/23 tablet (Nitrostat) Chest Pain ondansetron HCl 4 mg tablet 4 mg PO TID PRN NAUSEA/VOMITING 01/29/23 03/03/23 oxycodone 5 mg tablet 5 mg PO Q4H PRN PAIN NOT 01/29/23 03/03/23 CONTROLLED BY TYLENOL pantoprazole 40 mg tablet,delayed 40 mg PO DAILY 01/29/23 03/03/23 release tramadol 50 mg tablet 50 mg PO Q4H PRN Pain 01/29/23 03/03/23 sodium chloride 0.65 % nasal spray 1 spray intranasal Q2H PRN WHILE 03/03/23 03/03/23 aerosol AWAKE FOR NASAL DRYNESS Previous Rx's Medication Instructions Recorded lisinopril 30 mg tablet 30 mg PO DAILY #90 tabs 07/01/21 blood sugar diagnostic (Accu-Chek #50 ea 03/24/22 Guide test strips) pravastatin 10 mg tablet 10 mg PO DAILY #90 tabs 06/09/22 lancets (Accu-Chek Fastclix Lancet #200 ea 08/07/22 Drum) pen needle, diabetic 32 gauge x #100 ea 08/12/2232" (BD Ultra-Fine Diamond Pen Needle) dulaglutide 1.5 mg/0.5 mL 1.5 mg (0.5 mL) subcut WK E11.9 #2 01/07/23 subcutaneous pen injector mL levothyroxine 137 mcg tablet 137 mcg PO DAILY #90 tabs 01/30/23 metformin 1,000 mg tablet 1,000 mg PO BID 90 days #180 tabs 02/02/23 insulin detemir U-100 100 unit/mL 30 unit (0.3 mL) subcut DAILY #9 mL 02/20/23 (3 mL) subcutaneous pen (Levemir FlexTouch U-100 Insulin) Results & Data (ED) Vital Signs Vital Signs - 24 hr 03/03/23 12:33 03/03/23 13:16 03/03/23 13:30 Temperature 36.1 C L 36.6 C Temperature Source Temporal Artery Scan Oral Pulse Rate 71 69 Pulse Rate [Apical] 67 Pulse Rhythm [Apical] Regular Respiratory Rate 18 18 Respiratory Effort / Characteristics Non-Labored Non-Labored Spontaneous Respiratory Depth Normal Normal Respiratory Pattern Regular Blood Pressure 103/65 Blood Pressure [Right Radial Artery] 108/63 Blood Pressure Mean 77 Blood Pressure Mean [Right Radial Artery] 78 Blood Pressure Position Sitting Blood Pressure Position [Right Radial Artery] Lying Pulse Oximetry 98 99 Oxygen Delivery Method Room Air Room Air Sepsis Recent Fever Within 48 Hours No Sepsis New/Unexplained Change in Mental Status No Sepsis Action Taken by Nursing No Action Required 03/03/23 14:04 Temperature Temperature Source Pulse Rate Pulse Rate [Apical] Pulse Rhythm [Apical] Respiratory Rate Respiratory Effort / Characteristics Respiratory Depth Respiratory Pattern Blood Pressure Blood Pressure [Right Radial Artery] Blood Pressure Mean Blood Pressure Mean [Right Radial Artery] Blood Pressure Position Blood Pressure Position [Right Radial Artery] Pulse Oximetry 99 Oxygen Delivery Method Room Air Sepsis Recent Fever Within 48 Hours Sepsis New/Unexplained Change in Mental Status Sepsis Action Taken by Nursing Laboratory Data Attestation: I reviewed the patient's lab results. 03/03/23 13:40 03/03/23 13:40 Lab Results 03/03/23 03/03/23 03/03/23 Range/Units 13:04 13:40 13:40 WBC (4.8-10.8) K/ul RBC (4.70-6.10) M/uL Hgb (14.0-18.0) g/dl Hct (42.0-52.0) % MCV (80.0-100.0) fL MCH (25.0-34.0) pg MCHC (32.0-36.0) g/dL RDW Std Deviation (36.4-46.3) fL RDW Coeff of Liam (11.5-14.5) % Plt Count (130-400) K/uL MPV (9.4-12.4) fL Immature Gran % (Auto) % Neut % (Auto) % Lymph % (Auto) % Jackson % (Auto) % Eos % (Auto) % Baso % (Auto) % Neut # (Auto) (1.40-6.50) K/uL Lymph # (Auto) (1.2-3.4) K/uL Jackson # (Auto) (0.11-0.59) K/uL Eos # (Auto) (0-0.50) K/uL Baso # (Auto) (0-0.2) K/uL Immature Gran # (Auto) (0.01-0.20) K/uL PT (9.0-12.0) Seconds INR (0.9-1.1) Sodium 137 (136-145) mmol/L Potassium 4.5 (3.5-5.1) mmol/L Chloride 102 (98-107) mmol/L Carbon Dioxide 28 (21-32) mmol/L Anion Gap 7 (3-11) BUN 26 H (6-23) mg/dl Creatinine 1.48 H (0.6-1.4) mg/dl Est Cr Clr Drug Dosing 54.2 ml/min Est GFR ( Amer) 57.1 ml/min Est GFR (Non-Af Amer) 49.3 ml/min BUN/Creatinine Ratio 17.6 (10-20) Glucose 118 H (70-99(Fasting)) mg/dl POC Glucose 132 H (70-99) mg/dl Calcium 9.7 (8.6-10.3) mg/dl Phosphorus 4.5 (2.5-4.9) mg/dl Magnesium 2.1 (1.7-2.4) mg/dl Total Bilirubin 0.5 (0.2-1.0) mg/dl Direct Bilirubin 0.0 (0-0.2) mg/dl AST 36 (13-39) U/L ALT 25 (7-52) U/L Alkaline Phosphatase 134 H (34-104) U/L Ammonia 28.0 (18-72) umol/L Total Creatine Kinase 27 L (30-223) U/L Troponin I High Sens 10.8 (0-20) pg/ml Total Protein 7.7 (6.0-8.3) gm/dl Albumin 4.1 (3.4-5.0) gm/dl Globulin 3.6 (2.5-4.0) gm/dl Albumin/Globulin Ratio 1.1 (0.9-2) Lipase 21 (11-82) U/L TSH (0.300-4.500) uIu/ml Free T4 (0.61-1.60) ng/dl Free T3 (2.3-4.2) pg/ml Urine Color Urine Appearance (Clear) Urine pH (4.5-7.5) Ur Specific [place] (1.000-1.030) Urine Protein (Negative) Urine Glucose (UA) (Negative) Urine Ketones (Negative) Urine Blood (Negative) Urine Nitrite (Negative) Urine Bilirubin (Negative) Urine Urobilinogen (Negative) Ur Leukocyte Esterase (Negative) SARS-CoV-2 (PCR) (Negative) 03/03/23 03/03/23 03/03/23 Range/Units 13:40 13:40 13:40 WBC 6.24 (4.8-10.8) K/ul RBC 3.85 L (4.70-6.10) M/uL Hgb 10.6 L (14.0-18.0) g/dl Hct 33.5 L (42.0-52.0) % MCV 87.0 (80.0-100.0) fL MCH 27.5 (25.0-34.0) pg MCHC 31.6 L (32.0-36.0) g/dL RDW Std Deviation 44.9 (36.4-46.3) fL RDW Coeff of Liam 14.2 (11.5-14.5) % Plt Count 354 (130-400) K/uL MPV 9.4 (9.4-12.4) fL Immature Gran % (Auto) 1.0 % Neut % (Auto) 60.6 % Lymph % (Auto) 24.8 % Jackson % (Auto) 9.3 % Eos % (Auto) 2.9 % Baso % (Auto) 1.4 % Neut # (Auto) 3.78 (1.40-6.50) K/uL Lymph # (Auto) 1.55 (1.2-3.4) K/uL Jackson # (Auto) 0.58 (0.11-0.59) K/uL Eos # (Auto) 0.18 (0-0.50) K/uL Baso # (Auto) 0.09 (0-0.2) K/uL Immature Gran # (Auto) 0.06 (0.01-0.20) K/uL PT (9.0-12.0) Seconds INR (0.9-1.1) Sodium (136-145) mmol/L Potassium (3.5-5.1) mmol/L Chloride (98-107) mmol/L Carbon Dioxide (21-32) mmol/L Anion Gap (3-11) BUN (6-23) mg/dl Creatinine (0.6-1.4) mg/dl Est Cr Clr Drug Dosing ml/min Est GFR ( Amer) ml/min Est GFR (Non-Af Amer) ml/min BUN/Creatinine Ratio (10-20) Glucose (70-99(Fasting)) mg/dl POC Glucose (70-99) mg/dl Calcium (8.6-10.3) mg/dl Phosphorus (2.5-4.9) mg/dl Magnesium (1.7-2.4) mg/dl Total Bilirubin (0.2-1.0) mg/dl Direct Bilirubin (0-0.2) mg/dl AST (13-39) U/L ALT (7-52) U/L Alkaline Phosphatase (34-104) U/L Ammonia (18-72) umol/L Total Creatine Kinase (30-223) U/L Troponin I High Sens (0-20) pg/ml Total Protein (6.0-8.3) gm/dl Albumin (3.4-5.0) gm/dl Globulin (2.5-4.0) gm/dl Albumin/Globulin Ratio (0.9-2) Lipase (11-82) U/L TSH 0.388 (0.300-4.500) uIu/ml Free T4 0.91 (0.61-1.60) ng/dl Free T3 3.61 (2.3-4.2) pg/ml Urine Color Urine Appearance (Clear) Urine pH (4.5-7.5) Ur Specific [place] (1.000-1.030) Urine Protein (Negative) Urine Glucose (UA) (Negative) Urine Ketones (Negative) Urine Blood (Negative) Urine Nitrite (Negative) Urine Bilirubin (Negative) Urine Urobilinogen (Negative) Ur Leukocyte Esterase (Negative) SARS-CoV-2 (PCR) (Negative) 03/03/23 03/03/23 03/03/23 Range/Units 13:40 13:45 15:09 WBC (4.8-10.8) K/ul RBC (4.70-6.10) M/uL Hgb (14.0-18.0) g/dl Hct (42.0-52.0) % MCV (80.0-100.0) fL MCH (25.0-34.0) pg MCHC (32.0-36.0) g/dL RDW Std Deviation (36.4-46.3) fL RDW Coeff of Liam (11.5-14.5) % Plt Count (130-400) K/uL MPV (9.4-12.4) fL Immature Gran % (Auto) % Neut % (Auto) % Lymph % (Auto) % Jackson % (Auto) % Eos % (Auto) % Baso % (Auto) % Neut # (Auto) (1.40-6.50) K/uL Lymph # (Auto) (1.2-3.4) K/uL [place] # (Auto) (0.11-0.59) K/uL Eos # (Auto) (0-0.50) K/uL Baso # (Auto) (0-0.2) K/uL Immature Gran # (Auto) (0.01-0.20) K/uL PT 11.6 (9.0-12.0) Seconds INR 1.1 (0.9-1.1) Sodium (136-145) mmol/L Potassium (3.5-5.1) mmol/L Chloride (98-107) mmol/L Carbon Dioxide (21-32) mmol/L Anion Gap (3-11) BUN (6-23) mg/dl Creatinine (0.6-1.4) mg/dl Est Cr Clr Drug Dosing ml/min Est GFR ( Amer) ml/min Est GFR (Non-Af Amer) ml/min BUN/Creatinine Ratio (10-20) Glucose (70-99(Fasting)) mg/dl POC Glucose (70-99) mg/dl Calcium (8.6-10.3) mg/dl Phosphorus (2.5-4.9) mg/dl Magnesium (1.7-2.4) mg/dl Total Bilirubin (0.2-1.0) mg/dl Direct Bilirubin (0-0.2) mg/dl AST (13-39) U/L ALT (7-52) U/L Alkaline Phosphatase (34-104) U/L Ammonia (18-72) umol/L Total Creatine Kinase (30-223) U/L Troponin I High Sens (0-20) pg/ml Total Protein (6.0-8.3) gm/dl Albumin (3.4-5.0) gm/dl Globulin (2.5-4.0) gm/dl Albumin/Globulin Ratio (0.9-2) Lipase (11-82) U/L TSH (0.300-4.500) uIu/ml Free T4 (0.61-1.60) ng/dl Free T3 (2.3-4.2) pg/ml Urine Color Yellow Urine Appearance Clear (Clear) Urine pH 5.0 (4.5-7.5) Ur Specific [place] 1.011 (1.000-1.030) Urine Protein Negative (Negative) Urine Glucose (UA) Negative (Negative) Urine Ketones Negative (Negative) Urine Blood Negative (Negative) Urine Nitrite Negative (Negative) Urine Bilirubin Negative (Negative) Urine Urobilinogen Negative (Negative) Ur Leukocyte Esterase Negative (Negative) SARS-CoV-2 (PCR) NEGATIVE (Negative) Administered Medications Hydrocortisone (Hydrocortisone 10 Mg Tab) 5 mg PO QPM KEN Stop: 04/02/23 20:59 Last Admin: 03/03/23 21:35 Dose: 5 mg Documented By: LAT Insulin Aspart (Insulin Aspart Per Unit Charge) 0 units SC ACHS KEN Stop: 04/02/23 20:59 Last Admin: 03/03/23 21:29 Dose: Not Given Documented By: LAT Insulin Glargine (Lantus Per Unit Charge) 8 units SQ BID KEN Stop: 04/02/23 20:59 Last Admin: 03/03/23 21:34 Dose: 8 units Documented By: JEFF Co-signed By: HERBIE Melatonin (Melatonin 3 Mg Tab) 3 mg PO HS PRN PRN Reason: Sleep Stop: 04/03/23 00:34 Last Admin: 03/04/23 00:58 Dose: 3 mg Documented By: JEFF Metoprolol Tartrate (Metoprolol Tartrate 25 Mg Tab) 25 mg PO BID KEN Stop: 04/02/23 20:59 Last Admin: 03/03/23 21:35 Dose: 25 mg Documented By: JEFF Discontinued Medications Hydrocortisone Sodium Succinate (Hydrocortisone Sod Succinate 100 Mg/2 Ml Vial) 50 mg IV NOW STA Stop: 03/03/23 15:02 Last Admin: 03/03/23 15:22 Dose: 50 mg Documented By: JORGE Sodium Chloride (Nss 1000ml) 1,000 mls @ 999 mls/hr IV .Q1H1M STA Stop: 03/03/23 14:16 Last Infusion: 03/03/23 15:26 Dose: 0 mls/hr Documented By: Admin: 03/03/23 13:34 Dose: 999 mls/hr Documented By: JORGE Famotidine (Pepcid 20mg Iv Push) 20 mg in 5 mls @ 2.5 mls/min IV NOW STA Stop: 03/03/23 15:01 Last Admin: 03/03/23 15:22 Dose: 2.5 mls/min Documented By: JORGE Ondansetron HCl (Ondansetron Inj 2 Mg/Ml 2 Ml Vial) 4 mg IV NOW STA Stop: 03/03/23 15:01 Last Admin: 03/03/23 15:22 Dose: Not Given Documented By: JORGE Imaging Data Radiologist's Impression: Chest X-Ray 03/03/23 13:17 XR chest 1V portable HISTORY: 62 years-old Male Chest pain, nonspecific acute chest pain COMPARISON: 10/09/2022 TECHNIQUE: AP view of the chest FINDINGS: Cardiac silhouette is enlarged. No pneumothorax, pleural effusion, airspace consolidation or pulmonary edema. Degenerative changes of the shoulders and spine. IMPRESSION: Cardiomegaly without acute process. ACT 112: Negative or not required by law. The above report was generated using voice recognition software. It may contain grammatical, syntax or spelling errors. Electronically signed by: Malcolm Mccoy M.D. 03/03/2023 2:31 PM Discharge Plan Visit Data Chief Complaint: Illness Stated Complaint: FEELS LIKE HES ABOUT TO FAINT ED Provider: Kemar Burrows Discharge Problem: Hypopituitarism, Noncompliance with medication regimen, Dizziness, Nausea Patient Disposition: Admitted As Inpatient Discharge Instructions Interventions: ED Discharge Assessment Last Done: 03/03/23 18:23
--- NOTE | 2023-03-03 16:44 | History & Physical Report ---
Date of Service March 03, 2023 Assessment & Plan (1) Hypopituitarism: Plan: 62-year-old male with a history of pituitary adenoma resection with subsequent hypopituitarism who presents hypotensive and weak in the setting of not taking his hydrocortisone for several days. Patient had been on an increased dose which contributed to steroid psychosis with feelings of suicidality, agitation, and insomnia and as a result of this was decreased in dose, but was concerned symptoms recur so he did not take this for several days. Patient does not think he has taken extra Synthroid, but daughter is concerned that he also had 2 pill bottles 1 of which has several extra tabs of Synthroid missing. Patient denies taking extra Synthroid to supplement for hydrocortisone, and is not sure if he took extra Synthroid. Hypopituitarism Continue hydrocortisone, received 50 mg load in ER with improvement in blood pressure and perfusion Continue home hydrocortisone dosing of 10 mg a.m., 5 mg p.m. Continue Synthroid, TSH pending. No symptoms of overt iatrogenic hyperthy roidism. Would not expect TSH to be affected this quickly. Likely most reasonable course is to resume recommended home dosing, and follow-up as outpatient. He has not had any atrial fibrillation or palpitations No arrhythmia on admission, BP normalized. Will observe on medical telemetry. Patient has been weak and had difficulty at home,, and patient has had difficulty managing his medications independently. Family requesting home health versus rehab evaluation with PT prior to return home. (2) DM2 (diabetes mellitus, type 2): Plan: Weight-based basal bolus while inpatient Goal BSG [id number] Lantus 8 units twice daily. CF 50, carb ratio 16 DM diet (3) Benign prostatic hyperplasia with urinary obstruction: Plan: Patient with increased frequency and urgency UA pending (4) S/P drug eluting coronary stent placement: Plan: Continue aspirin, Plavix, pravastatin. Lisinopril/metoprolol can be resumed tomorrow if normotensive. No signs of CHF on admission (5) Hypertension: Plan: Hypotensive on admission in the setting of pituitary insufficiency. Resume lisinopril/metoprolol tomorrow as long as normotensive (6) Coronary artery disease: History of Present Illness Primary Care Provider: MAUREEN Cason Wilian is a 62-year-old male with a history of pituitary macroadenoma s/p resection in 12/2022 [place] [facility] [place] with subsequent AI on hydrocortisone, DM2, hyperlipidemia, hypertension, CAD who presents with generalized weakness and decreased appetite. Patient's sister reports he has not been taking his hydrocortisone tablets. Has extra synthroid. Eating and drinking poorly. Pt having difficulty with medications, arredondo sno tfeel he is able to do this at home and is interested in inpatient rehab/placement. Feverish with chills. BUrning up and the chilly and cold last few weeks. No cough. No chest pain, no chest pressure Peeing small amounts, with frequency. No burning with urination but hurts a little 'uncomfortable.' No field cut, but has double vision with exotropia. Has an appointment with [facility]o next week for options. Vertical diplopia. No saccades, EoM intact with strabismus. Hydrocortisone was on 15am, 10mg PM but had agitation, suicidality, insomnia. QUit taking all medications last Thursday (5 days ago). Decreased to 10am and 5mg HS but pill bottle is still full. Has not been taking Thyroid 137mcg, 1 full bottle and 1 empty. May have been taking extra thryoid tablets intead of hydrocortisone. Patient reports he does not want to take hydrocortisone because a high dose made him feel very agitated and is worried this will recur. No longer feels agitated. Denies SI/HI. Feels the agitation resolved once the dose was decreased of hydrocortisone. Very frustrated that he had to get a loading dose in the ER. Denies palpitations, chest pain, chest pressure, fever, chills. Has had some lightheadedness but no syncope. Has had global weakness, but has not fallen or hit his head. Medical History: Reviewed Medications: Reviewed Surgical History: Reviewed Family history: Reviewed Allergies: Reviewed Social History: Reviewed Code Status: Full code Allergies Allergy/AdvReac Type Severity Reaction Status Date / Time No Known Allergies Allergy Verified 03/03/23 16:57 Home Medications Medication Instructions Recorded Confirmed Type aspirin 81 mg tablet,delayed 81 mg PO DAILY 04/15/19 03/03/23 History release (Prince Low Dose Aspirin) lisinopril 30 mg tablet 30 mg PO DAILY #90 tabs 07/01/21 03/03/23 Rx blood sugar diagnostic (Accu-Chek #50 ea 03/24/22 02/17/23 Rx Guide test strips) pravastatin 10 mg tablet 10 mg PO DAILY #90 tabs 06/09/22 03/03/23 Rx lancets (Accu-Chek Fastclix Lancet #200 ea 08/07/22 02/17/23 Rx Drum) pen needle, diabetic 32 gauge x #100 ea 08/12/22 02/17/23 Rx 5/32" (BD Ultra-Fine Diamond Pen Needle) dulaglutide 1.5 mg/0.5 mL 1.5 mg (0.5 mL) subcut WK E11.9 #2 01/07/23 03/03/23 Rx subcutaneous pen injector mL bisacodyl 10 mg rectal suppository 10 mg [place] DAILY PRN Constipation 01/29/23 03/03/23 History celecoxib 200 mg capsule (Celebrex) 200 mg PO BID PRN Pain 01/29/23 03/03/23 History clopidogrel 75 mg tablet 75 mg PO DAILY 01/29/23 03/03/23 History hydrocortisone 5 mg tablet See Rx Instructions .Route .COMPLEX 01/29/23 03/03/23 History insulin glargine 100 unit/mL (3 0 unit subcut DIRECTED 01/29/23 03/03/23 History mL) subcutaneous pen (Lantus Solostar U-100 Insulin) metoprolol tartrate 25 mg tablet 25 mg PO BID 01/29/23 03/03/23 History nitroglycerin 0.3 mg sublingual 0.3 mg sublingual DIRECTED PRN 01/29/23 03/03/23 History tablet (Nitrostat) Chest Pain ondansetron HCl 4 mg tablet 4 mg PO TID PRN NAUSEA/VOMITING 01/29/23 03/03/23 History oxycodone 5 mg tablet 5 mg PO Q4H PRN PAIN NOT 01/29/23 03/03/23 History CONTROLLED BY TYLENOL pantoprazole 40 mg tablet,delayed 40 mg PO DAILY 01/29/23 03/03/23 History release tramadol 50 mg tablet 50 mg PO Q4H PRN Pain 01/29/23 03/03/23 History levothyroxine 137 mcg tablet 137 mcg PO DAILY #90 tabs 01/30/23 03/03/23 Rx metformin 1,000 mg tablet 1,000 mg PO BID 90 days #180 tabs 02/02/23 03/03/23 Rx insulin detemir U-100 100 unit/mL 30 unit (0.3 mL) subcut DAILY #9 mL 02/20/23 03/03/23 Rx (3 mL) subcutaneous pen (Levemir FlexTouch U-100 Insulin) sodium chloride 0.65 % nasal spray 1 spray intranasal Q2H PRN WHILE 03/03/23 03/03/23 History aerosol AWAKE FOR NASAL DRYNESS Past Med/Surg History Medical History Benign prostatic hyperplasia with urinary obstruction Coronary artery disease Diverticulitis DM2 (diabetes mellitus, type 2) Elevated LFTs Hyperlipidemia Hypertension Kidney stones Left ureteral calculus Mixed connective tissue disease NSTEMI (non-ST elevated myocardial infarction) Periodic limb movement disorder Unstable angina Surgical History H/O lithotripsy Stented coronary artery [place] teeth removed Family History Unknown Heart disease Cancer Mother Breast cancer Father Coronary heart disease Diabetes Brother Coronary heart disease Skin cancer Sister No problems noted. Brother No problems noted. Son No problems noted. Other Hypertension Denies family history of Ovarian cancer Prostate cancer Myocardial infarction Colorectal cancer Social History Smoking Status: Never smoker Tobacco Type: Cigarettes Age Started Using Tobacco: 15; Age Quit Using Tobacco: 25; packs per day: 1; Second Hand Exposure: No; Hx Alcohol Use: No Hx Substance Use: No Preferred Language: Slovak Communication Ability: Effective Visual Impairment: No Limitations Hearing Ability: Normal Supervisor Audit Clerks Required: No Beliefs That Will Affect Care: None marital status: Single Current Living Situation: Alone current occupational status: employed current occupation: [employer] Feels Safe at Home: Yes Childhood Exposure to Second-Hand Smoke: No Diet Comment: regular Dental Care, Regularly: No Physical Activity Frequency: Does not Exercise Seatbelt Use: always Sunscreen Use: No Assistive Devices: Glasses Review of Systems Review of Systems: All systems reviewed & are unremarkable except as noted in HPI & below Physical Exam Physical Exam: General: A&Ox3. NAD. Cooperative. HEENT: Atraumatic, normocephalic. EOM intact, although right-sided strabismus and resting exotropia and has vertical diplopia at resting gaze. No field cuts. Pulm: CTAB A&P. -wheezes, -rales, -rhonchi. Symmetrical chest rise. No increased work of breathing. No respiratory distress. Cardiac: RRR, -mrg. Radial pulses intact and symmetrical. Abdominal: Nontender, nondistended, soft. BS present. Extremities: Warm, dry. Somewhat pale on ER arrival, following hydrocortisone load and publisher improvement is warm and well-perfused. Moving all extremities equally, insulator helper strength/ankle flexion dorsiflexion/plantarflexion 5/5. Results & Data Results & Data Vital Signs (Past 12 Hours) Vital Signs Temp Pulse Pulse Resp BP BP Pulse Ox 03/03/23 14:04 99 03/03/23 13:30 69 03/03/23 13:16 36.6 C 67 18 108/63 99 03/03/23 12:33 36.1 C L 71 18 103/65 98 O2 Del Method 03/03/23 14:04 Room Air 03/03/23 13:30 03/03/23 13:16 Room Air 03/03/23 12:33 Room Air PG Care Time/CCT Total # of Minutes Spent Total Time Spent with Patient: Total time spent is greater than 50% in coordination of care (as documented) at patient's floor/unit and/or counseling patient: Coding Level of Care Code 89186 INT INP/OBS CARE 3/75MIN Diagnoses Hypopituitarism E23.0 DM2 (diabetes mellitus, type 2) E11.9 Benign prostatic hyperplasia with urinary obstruction N40.1; N13.8 S/P drug eluting coronary stent placement Z95.5 Hypertension I10 Hypertension type: essential hypertension Coronary artery disease I25.10 (5) Hypertension Hypertension type: essential hypertension Qualified Code(s): I10 - Essential (primary) hypertension
[2023-03-03] MEDS ORDERED: CARBOHYDRATES FOR HYPOGLYCEMIA PO PRN (17:17)
[2023-03-03] MEDS ORDERED: GLUCAGON FOR INJ 1 MG VIAL SQ PRN (17:17)
[2023-03-03] MEDS ORDERED: DEXTROSE 50% 50 ML SYRINGE IV PRN (17:17)
[2023-03-03] MEDS ORDERED: GLUCOSE 10 TAB/TUBE PO PRN (17:17)
[2023-03-03] MEDS ORDERED: GLUCOSE 40% GEL 15 GM TUBE PO PRN (17:17)
[2023-03-03] MEDS ORDERED: bisacodyL 10 MG SUPP PR PRN (18:35)
[2023-03-03] MEDS ORDERED: traMADol HCL 50 MG TABLET PO PRN (18:35)
[2023-03-03] MEDS ORDERED: NITROGLYCERIN 0.3 MG/1 TAB 100 TAB BTL SL PRN (18:35)
[2023-03-03] MEDS ORDERED: METOPROLOL TARTRATE 25 MG TAB PO SCH (21:00)
[2023-03-03] MEDS ORDERED: HYDROCORTISONE 10 MG TAB PO SCH (21:00)
[2023-03-03] MEDS: INSULIN ASPART PER UNIT CHARGE SC SCH (21:29)
[2023-03-03] MEDS: LANTUS PER UNIT CHARGE SQ SCH (21:34)
[2023-03-04] MEDS: MELATONIN 3 MG TAB PO PRN ×2 (00:58→21:56)
[2023-03-04] MEDS: LEVOTHYROXINE SODIUM 137 MCG TABLET PO SCH (06:06)
[2023-03-04] MEDS: oxyCODONE HCL IR 5 MG TAB (IMMEDIATE RELEASE) PO PRN ×2 (06:09→19:29)
[2023-03-04 08:27] LABS: Basophils # (auto) 0.07 K/uL (0-0.2); Eosinophils # (auto) 0.18 K/uL (0-0.50); Eosinophils % (auto) 2.6 %; Hematocrit (blood only) 32.8 % (42.0-52.0); Hemoglobin 10.6 g/dl (14.0-18.0); Immature Granulocytes # (auto) 0.05 K/uL (0.01-0.20); Immature Granulocytes % (auto) 0.7 %; Lymphocytes # (auto) 2.05 K/uL (1.2-3.4); Lymphocytes % (auto) 29.6 %; Mean Corpuscular Hemoglobin 27.6 pg (25.0-34.0); Mean Corpuscular Hgb Conc 32.3 g/dL (32.0-36.0); Mean Corpuscular Volume 85.4 fL (80.0-100.0); Mean Platelet Volume 9.2 fL (9.4-12.4); Monocytes % (auto) 7.2 %; Neutrophils # (auto) 4.08 K/uL (1.40-6.50); Neutrophils % (auto) 58.9 %; Platelet Count 353 K/uL (130-400); RDW Standard Deviation 43.3 fL (36.4-46.3); Red Blood Count 3.84 M/uL (4.70-6.10); White Blood Count 6.93 K/ul (4.8-10.8)
[2023-03-04] MEDS: CLOPIDOGREL BISULFATE 75 MG TAB PO SCH (08:33)
[2023-03-04] MEDS: ASPIRIN 81 MG ECTAB PO SCH (08:34)
[2023-03-04] MEDS: PRAVASTATIN SOD 10 MG TAB PO SCH (08:34)
[2023-03-04] MEDS: PANTOprazole 40 MG TAB PO SCH (08:34)
[2023-03-04 08:40] LABS: Estimated Average Glucose 137 mg/dl; Hemoglobin A1C 6.4 % (4.5-5.6)
[2023-03-04 08:43] LABS: BUN Creatinine Ratio 21.6 (10-20); Calcium 9.4 mg/dl (8.6-10.3); Creatinine Clr Calc Pharmacy 77.6 ml/min; Est GFR (African American) 89.6 ml/min; Est GFR (Non-African American) 77.3 ml/min; Potassium 4.2 mmol/L (3.5-5.1)
[2023-03-04] MEDS: INSULIN ASPART PER UNIT CHARGE SC SCH ×4 (08:44→21:56)
[2023-03-04] MEDS: LANTUS PER UNIT CHARGE SQ SCH ×2 (08:45→21:56)
[2023-03-04] MEDS: SODIUM CHLORIDE 0.9% 1000ML 1,000 ML IV SCH ×2 (08:45→16:42)
[2023-03-04] MEDS: HYDROCORTISONE SOD 50 MG in SYRINGE 0 ML IV SCH ×2 (08:46→15:46)
[2023-03-04] MEDS ORDERED: lisinopril 10 MG TAB PO SCH (09:00)
[2023-03-04] MEDS ORDERED: HYDROCORTISONE 10 MG TAB PO SCH (09:00)
--- NOTE | 2023-03-04 16:08 | Hospitalist Progress Note ---
Date of Service March 04, 2023 Assessment & Plan (1) Hypopituitarism: Plan: Patient presented in adrenal crisis. He had not been taking his hydrocortisone for several days. He is now on intravenous fluids and parenteral steroid therapy and has stabilized. Will resume oral hydrocortisone therapy tomorrow, March 05 (2) DM2 (diabetes mellitus, type 2): Plan: ADA diet. Basal insulin therapy. Sliding scale coverage as needed (3) Benign prostatic hyperplasia with urinary obstruction: Plan: Medication management. No evidence of infection. (4) S/P drug eluting coronary stent placement: Plan: Stable. Continue current medical management with aspirin, Plavix, pravastatin. Lisinopril/metoprolol can be resumed on March 05 (5) Hypertension: Plan: Hypotensive on admission in the setting of panhypopituitarism causing adrenal insufficiency. He has not been taking his oral steroid therapy. He is now normotensive with IV fluids and parenteral steroids. Lisinopril and metoprolol are currently on hold and will be restarted tomorrow, March 05 (6) Coronary artery disease: Plan: Stable. Continue current medical management Plan Anticipate discharge to home tomorrow, March 05 Admission and Anticipated Discharge Date Admission Date: March 03, 2023 Subjective Alert and oriented. is at the bedside. He is now on IV fluids and parenteral hydrocortisone. Renal function will be repeated tomorrow, March 05. Anticipate discharge to home tomorrow. Lisinopril and metoprolol remain on hold. Review of Systems Review of Systems: Constitutional-no fever or chills ENT-right eye is chronically closed. No epistaxis, no sore throat Respiratory-no cough, no wheezing, no shortness of breath Cardiac-no palpitations, no chest pain, no syncope GI-no nausea, vomiting, diarrhea, melena, hematochezia -no urinary retention, no urinary incontinence, no dysuria, no hematuria Musculoskeletal-no joint pain, no muscle tenderness Skin-no bruising, no rashes, no pruritus Neuro-no isolated weakness, no paresthesia, no weakness Psych-no depression, no anxiety Physical Exam Physical Exam: General-alert and oriented x3, no fevers, no chills HEENT-head atraumatic and normocephalic, right eye is closed, pupils equal and reactive to light, extraocular muscles intact Neck-no lymphadenopathy or thyromegaly, trachea midline Chest-clear to auscultation percussion. No rales wheezing or rhonchi Cardiac-regular rate and rhythm, normal S1 and S2 Abdomen-normal bowel sounds, nontender, no hepatosplenomegaly Extremities-no cyanosis, clubbing, or edema Neuro-cranial nerves II through XII intact, motor and sensory function within normal limits, strength symmetrical , no focal deficits Psych-normal affect, normal mood Results & Data Results & Data Vital Signs (Past 12 Hours) Vital Signs Temp Pulse Pulse Resp BP Pulse Ox O2 Del Method 03/04/23 14:08 77 03/04/23 11:38 36.6 C 70 16 129/69 97 Room Air 03/04/23 07:38 36.8 C 57 L 16 114/67 97 Room Air 03/04/23 06:35 63 Laboratory Results 03/04/23 07:58 03/04/23 07:58 PG Care Time/CCT Total # of Minutes Spent Total Time Spent with Patient: Total time spent is greater than 50% in coordination of care (as documented) at patient's floor/unit and/or counseling patient: Coding Level of Care Code 16967 SUB INP/OBS CARE 3/50MIN Diagnoses Hypopituitarism E23.0 DM2 (diabetes mellitus, type 2) E11.9 Benign prostatic hyperplasia with urinary obstruction N40.1; N13.8 S/P drug eluting coronary stent placement Z95.5 Hypertension I10 Hypertension type: essential hypertension Coronary artery disease I25.10 (5) Hypertension Hypertension type: essential hypertension Qualified Code(s): I10 - Essential (primary) hypertension
[2023-03-05] MEDS: oxyCODONE HCL IR 5 MG TAB (IMMEDIATE RELEASE) PO PRN ×2 (01:13→05:43)
[2023-03-05] MEDS: HYDROCORTISONE SOD 50 MG in SYRINGE 0 ML IV SCH ×2 (01:31→09:59)
[2023-03-05] MEDS: LEVOTHYROXINE SODIUM 137 MCG TABLET PO SCH (05:43)
[2023-03-05] MEDS: SODIUM CHLORIDE 0.9% 1000ML 1,000 ML IV SCH (06:04)
[2023-03-05 07:45] LABS: BUN Creatinine Ratio 21.9 (10-20); Calcium 8.8 mg/dl (8.6-10.3); Creatinine Clr Calc Pharmacy 82.8 ml/min; Est GFR (African American) 96.4 ml/min; Est GFR (Non-African American) 83.2 ml/min; Potassium 3.8 mmol/L (3.5-5.1)
[2023-03-05] MEDS: INSULIN ASPART PER UNIT CHARGE SC SCH ×2 (09:14→12:30)
[2023-03-05] MEDS: ASPIRIN 81 MG ECTAB PO SCH (09:59)
[2023-03-05] MEDS: CLOPIDOGREL BISULFATE 75 MG TAB PO SCH (10:00)
[2023-03-05] MEDS: PRAVASTATIN SOD 10 MG TAB PO SCH (10:01)
[2023-03-05] MEDS: PANTOprazole 40 MG TAB PO SCH (10:02)
[2023-03-05] MEDS: LANTUS PER UNIT CHARGE SQ SCH (10:37)
--- NOTE | 2023-03-05 12:54 | Discharge Summary ---
Date of Service March 05, 2023 Admission HPI Per Admitting Provider Steve Cedeno is a 62-year-old male with a history of pituitary macroadenoma s/p resection in 12/2022 at [facility] [place] with subsequent AI on hydrocortisone, DM2, hyperlipidemia, hypertension, CAD who presents with generalized weakness and decreased appetite. Patient's sister reports he has not been taking his hydrocortisone tablets. Has extra synthroid. Eating and drinking poorly. Pt having difficulty with medications, arredondo sno tfeel he is able to do this at home and is interested in inpatient rehab/placement. Feverish with chills. BUrning up and the chilly and cold last few weeks. No cough. No chest pain, no chest pressure Peeing small amounts, with frequency. No burning with urination but hurts a little 'uncomfortable.' No field cut, but has double vision with exotropia. Has an appointment with [facility] optho next week for options. Vertical diplopia. No saccades, EoM intact with strabismus. Hydrocortisone was on 15am, 10mg PM but had agitation, suicidality, insomnia. QUit taking all medications last Thursday (5 days ago). Decreased to 10am and 5mg HS but pill bottle is still full. Has not been taking Thyroid 137mcg, 1 full bottle and 1 empty. May have been taking extra thryoid tablets intead of hydrocortisone. Patient reports he does not want to take hydrocortisone because a high dose made him feel very agitated and is worried this will recur. No longer feels agitated. Denies SI/HI. Feels the agitation resolved once the dose was decreased of hydrocortisone. Very frustrated that he had to get a loading dose in the ER. Denies palpitations, chest pain, chest pressure, fever, chills. Has had some lightheadedness but no syncope. Has had global weakness, but has not fallen or hit his head. 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 No rales wheezing or rhonchi Cardiac-regular rate and rhythm, normal S1 and S2 Abdomen-normal bowel sounds, nontender, no hepatosplenomegaly Extremities-no cyanosis, clubbing, or edema Neuro-cranial nerves II through XII intact, motor and sensory function within normal limits, strength symmetrical , no focal deficits Psych-normal affect, normal mood Discharge Data Allergies Allergy/AdvReac Type Severity Reaction Status Date / Time No Known Allergies Allergy Verified 03/03/23 16:57 Consultations 03/03/23 16:22 ED Decision to Admit Stat Hospital Course (1) Hypopituitarism: Patient presented in adrenal crisis. He had not been taking his hydrocortisone for several days. This has now resolved with intravenous fluids and parenteral steroid therapy. Will resume oral hydrocortisone therapy at discharge today March 05 (2) DM2 (diabetes mellitus, type 2): ADA diet. Basal insulin therapy. Sliding scale coverage as needed (3) Benign prostatic hyperplasia with urinary obstruction: Medication management. No evidence of infection. (4) S/P drug eluting coronary stent placement: Stable. Continue current medical management with aspirin, Plavix, pravastatin. Lisinopril/metoprolol can be resumed on March 05 (5) Hypertension: Hypotensive on admission in the setting of panhypopituitarism causing adrenal insufficiency. He had not been taking his oral steroid therapy. He is now normotensive with IV fluids and parenteral steroids. Lisinopril and metoprolol are currently on hold and will be restarted at discharge. He will be switched from parenteral steroid therapy to oral hydrocortisone 10 mg in the morning and 5 mg in the evening at discharge (6) Coronary artery disease: Stable. Continue current medical management Plan Home todayMarch 05 Total Time Total Time Spent Total Time Spent (In Minutes): 40 minutes Discharge Plan Discharge Items Patient Disposition: Home - Self-Care Reason For Visit: ADRENAL INSUFFIENCY OFF HYDROCORTISONE Discharge Diagnosis: Adrenal insufficiency with hypotension, panhypopituitarism, acute kidney injury Activity: Resume your previous activity Non-emergency contact: Primary Care Provider Call non-emergency contact if: you have any medication questions Follow-up/Referrals: Ida Alejo CRNP [Primary Care Provider] - Diet: Carb Consistent or DM2 and Heart Healthy Addtl Attending Provider Instructions: Resume taking hydrocortisone 10 mg in the morning and 5 mg in the evening along with other medications. Do not stop the hydrocortisone for any reason Pending Studies at Discharge: No Stand-Alone Forms: My [facility], Smoking Cessation Medications and DC Order Prescriptions: New hydrocortisone 10 mg tablet 10 mg PO DAILY Qty: 30 0RF Continued lisinopril 30 mg tablet 30 mg PO DAILY Qty: 90 1RF (DME) Accu-Chek Guide test strips Strip See Rx Instructions .ROUTE .MEDSUPPLY Qty: 50 7RF Rx Instructions: TEST TWICE DAILY OR DIRECTED (DME) pen needle, diabetic [BD Ultra-Fine Diamond Pen Needle] 32 gauge x 5/32" needle See Rx Instructions .ROUTE .MEDSUPPLY Qty: 100 1RF Rx Instructions: Use once daily. dulaglutide 1.5 mg/0.5 mL pen injector 1.5 mg subcut WK Qty: 2 4RF levothyroxine 137 mcg tablet 137 mcg PO DAILY Qty: 90 3RF metformin 1,000 mg tablet 1,000 mg PO BID 90 Days Qty: 180 3RF Rx Instructions: TAKE 1 TABLET BY MOUTH TWICE A DAY Levemir FlexTouch U-100 Insuln 100 unit/mL (3 mL) insulin pen 30 unit subcut DAILY Qty: 9 3RF pravastatin 10 mg tablet 10 mg PO DAILY Qty: 90 3RF (DME) lancets [Accu-Chek Fastclix Lancet Drum] Misc See Rx Instructions .Route Qty: 200 3RF Rx Instructions: test twice daily As directed aspirin [Prince Low Dose Aspirin] 81 mg tablet,delayed release (DR/EC) 81 mg PO DAILY celecoxib [Celebrex] 200 mg Capsule 200 mg PO BID PRN (Reason: Pain) hydrocortisone 5 mg tablet See Rx Instructions .ROUTE .COMPLEX Rx Instructions: TAKE 15 MG QAM, THEN 10 MG QPM. nitroglycerin [Nitrostat] 0.3 mg Tablet, Sublingual 0.3 mg sublingual DIRECTED PRN (Reason: Chest Pain) ondansetron HCl [Zofran] 4 mg Tablet 4 mg PO TID PRN (Reason: NAUSEA/VOMITING) tramadol 50 mg tablet 50 mg PO Q4H PRN (Reason: Pain) bisacodyl 10 mg Suppository 10 mg [place] DAILY PRN (Reason: Constipation) pantoprazole 40 mg Tablet,Delayed Release (Dr/Ec) 40 mg PO DAILY Rx Instructions: PER PT'S SPOUSE, "DOES NOT HAVE THIS MED". oxycodone 5 mg Tablet 5 mg PO Q4H PRN (Reason: PAIN NOT CONTROLLED BY TYLENOL) metoprolol tartrate 25 mg Tablet 25 mg PO BID Rx Instructions: PER MED LIST. PER EXT MED HX--METOPROLOL SUCCINATE 25 MG BID WAS FILLED 11/06/22 FOR 90 DAYS/180 TABS. insulin glargine [Lantus Solostar U-100 Insulin] 100 unit/mL (3 mL) Insulin Pen 0 unit SUBCUT DIRECTED Rx Instructions: NO DOSE LISTED ON MED LIST clopidogrel 75 mg tablet 75 mg PO DAILY Rx Instructions: TAKE 1 TABLET BY MOUTH EVERY DAY [place] Nasal 0.65 % Aerosol,[place] 1 spray INTRANASAL Q2H PRN (Reason: WHILE AWAKE FOR NASAL DRYNESS) Discharge Orders: Discharge Order (Routine); Ordered 03/05/23 Ordered By: Vikram Torres/Other Patient Handouts: Managing Type 2 Diabetes Admission Data Admit Date/Time: 03/03/23 17:17 Attending Provider: Vikram Baeza Admit Provider: Jason Otoole Primary Care Provider: Ida Alejo Other Providers: Jason Otoole Coding Level of Care Code 93358 INP/OBS DISCH >30 MIN Diagnoses Hypopituitarism E23.0 DM2 (diabetes mellitus, type 2) E11.9 Benign prostatic hyperplasia with urinary obstruction N40.1; N13.8 S/P drug eluting coronary stent placement Z95.5 Hypertension I10 Hypertension type: essential hypertension Coronary artery disease I25.10
== END 2023-03-05 15:23 | disposition home health service (06) ==
LOC: ED 12:29 → 2N 12:29 → SUATTDRO 17:17 → 2N 18:23